=== PATIENT | female | born 1970 | race Caucasian/White ===

== ENCOUNTER 2023-08-28 17:51 | Emergency (ER) | payer BC ==
--- OUTSIDE RECORDS SUMMARY | 2023-08-28 17:56 | XMS REPORT | Continuity of Care Document ---
:1970 Author Organization [facility] [place] t Address [address] [place] [address] [address] [place] [address] Care Team Providers Name Role Phone Mandeep See Attending Clinician Unavailable LISA LEON Attending Clinician Unavailable Linette Connolly Attending Clinician Sussy Nagel Attending Clinician Tyler Mccullough MD Attending Clinician Mary Ellen Roque Attending Clinician SUSSY GOLDSTEIN Attending Clinician Unavailable Doctor Unassigned, [employer] Attending Clinician Unavailable Arthur Barnett Attending Clinician Freda Clark Attending Clinician Jose Hernandez Attending Clinician Physician, No Primary or Family Admitting Clinician Unavaila ble Payers Payer Name Policy Type Policy Number Effective Date Expiration Date S [facility] [id number] 2015 PP 00:00:00 [facility] [place] [facility] [id number] 2020 OF STATE 00:00:00 Problems Condition Condition Condition Status Onset Resolution Last Treating Co mments Source Name Details Category Date Date Treatment Clinician Date CHEST PAIN CHEST Diagnosis Active 2019-04-01 Memoria PAIN - 17:03:00 l Active 00:00: Baldev 10/20/2018 00 [facility] Z12.31 - Z12.31 - Diagnosis Active 2017-06-13 Memoria ENCNTR ENCNTR 04-02 15:50:00 l SCREEN SCREEN 00:01: [place] MAMMOGRAM MAMMOGRAM 00 FOR MA FOR MA Active 04/02/2017 [facility] HNP HNP Disease Active Univers (herniated (herniated - it y of nucleus nucleus 00:00: [place] pulposus), pulposus), 00 Me dical lumbar lumbar Branch Numbness Numbness Disease Active Unive rs 9-09 ity of 00:00: [place] 00 Medical Branch Pain in Pain in Problem 2019-05-09 Me moria thoracic thoracic 15:14:42 l spine spine Stanley 05/09/2019 [facility] Other Other Problem 2019-05-09 Memor ia chronic chronic 15:14:42 l pain pain Stanley 05/09/2019 [facility] Elevated Elevated Problem 2019-05-09 Memoria blood-pres blood-pres 15:14:42 l sure sure [place] reading, reading, without without diagnosis diagnosis of of hypertensi hypertensi on on 05/09/2019 [facility] Shortness Shortness Problem 2019-05-09 Memoria of breath of breath 15:14:42 l 05/09/2019 Isma jenkins [facility] Cough Cough Problem 2019-05-09 Memor ia 05/09/2019 15:14:42 l [facility] Insomnia, Insomnia, Problem 2019-05-09 Memoria unspecifie unspecifie 15:14:42 l d d [place] 05/09/2019 [facility] Personal Personal Problem 2019-05-09 Memoria history of history of 15:14:42 l other other [place] diseases diseases of the of the musculoske musculoske letal letal system and system and connective connective tissue tissue 05/09/2019 [facility] Mastodynia Mastodyni Problem 2018-01-27 Memoria a 15:11:26 l 01/27/[address] [facility] Victormckayla Women's History of Past Illness Condition Condition Condition Status Onset Resolution Last Treating Co mments Source Name Details Category Date Date Treatment Clinician Date Other Other Problem 2019-05-09 2019-05-09 M emoria chest pain chest pain 1-17 15:14:42 15:14:42 l 04:43: Isma jenkins 9 11 05/09/2019 [facility] Encounter Encounter Problem 2018-01-27 2018-01-27 Memoria for for 1-12 15:11:26 15:11:26 l screening screening 05:34: Herm jorge mammogram mammogram 52 for for malignant malignant neoplasm neoplasm of breast of breast 10/23/2017 01/27/2018 [facility] Jerad Women's Allergies, Adverse Reactions, Alerts Allergy Allergy Status Severity Reaction(s) Onset Inactive Treating Comm ents Source Name Type Date Date Clinician PHENAZOP DRUG Active Hives Univers YRIDINE INGREDI 8-24 ity of HCL 00:00: [place] 00 [facility] Branch Phenazop Propensi Active Hives Univer s yridine ty to 8-24 ity of Hcl adverse 00:00: [place] reaction [address] [place] [address] phenazop DA Active ME 2009-10 [facility] yridine 1-15 Clear HCl 00:00: Liu 00 [facility] phenazop DA Active ME HIVES, LIPS 2009-10 [facility] yridine SWELL 1-15 Clear HCl 00:00: Liu 00 [facility] AZO AZO Active Memoria Urinary Urinary l Pain Pain [place] Relief Relief Social History Social Habit Start Date Stop Date Quantity Comments Source Exposure to Not sure [place] of SARS-CoV-2 [facility] (event) Branch History of Cigarette Smoker Universi ty of tobacco use [facility] Tobacco use and 2019-08-04 2019-08-04 Never used Universit y of exposure 00:00:00 00:00:00 [facility] Alcohol intake 2019-08-04 2019-08-04 Current University of 00:00:00 00:00:00 non-drinker of [facility] alcohol (finding) Branch Tobacco Comment 2019-08-04 2019-08-04 smoked socially Univ ersity of 00:00:00 00:00:00 in her early 20s [facility] dical Branch Social History 2018-10-20 2018-10-20 [facility] natasha 18:59:46 18:59:46 Alcohol Comment 2013-06-17 2013-06-17 social; 2 Universit y of 00:00:00 00:00:00 times/month [facility] Sex [birth year] At [birth year] Universit y of 00:00:00 00:00:00 [facility] Smoking Status Start Date Stop Date Source Former smoker 2019-08-04 00:00:00 2019-08-04 00:00:00 [facility] Medical Branch Medications Ordered Filled Start Stop Current Ordering Indication Dosage Frequency Signature Comments Components Source Medication Medication Date Date Medication? Clinician (SIG) Name Name FENTanyl PF 2020- No 50ug 50 mcg, Un tariq (SUBLIMAZE 04-01 Slow IV ity o f (PF)) 03:30: 02:34 Push, [place] injection 00 :00 ONCE, 1 Medical 50 mcg dose, [facility] 03/31/21 at 2230, Routine iopamidol 2020- No [id number] 100mL 100 mL, Univers (ISOVUE 04-01 Intravenou ity o f 300-500 mL) 02:45: 01:27 s, ONCE, 1 [place] injection 00 :00 dose, [place] [facility] 100 mL 03/31/21 at Branch 2145, Routine FENTanyl PF No 50ug 50 mcg, Un tariq (SUBLIMAZE 04-01 Slow IV ity o f (PF)) 01:30: 00:58 Push, [place] injection 00 :00 ONCE, 1 Medical 50 mcg dose, [facility] 03/31/21 at 2030, Routine ondansetron 2020- No 4mg 4 mg, Slow Univers (ZOFRAN 03-31 IV Push, ity of (PF)) 23:15: 01:13 Administer [place] injection 4 00 :00 over 15 Medic al mg Minutes, Branch ONCE, 1 dose, [place] 03/31/21 at 1815, STAT NaCl 0.9% 2020- No 1000mL at 999 Uni vers (NS) bolus 03-31 mL/hr, ity of infusion 23:15: 00:46 1,000 mL, Jason as 1,000 mL 00 :00 IV Medical Infusion, [place] ONCE, 1 dose, [place] 03/31/21 at 1815, SHAAN ondansetron Yes [id number] 4mg Take 1 Univers (ZOFRAN) 4 03-31 [id number] tablet by it y of mg tablet 00:00: mouth [place] 00 every 8 Medical (eight) Branch hours as needed for Nausea and Vomiting (N/V) for up to 15 doses. acetaminoph Yes [id number] 1{tbl} Take 1 Un tariq en-codeine 6-20 tablet by ity of 300-30 mg 00:00: mouth [place] tablet 00 every 6 Medical (six) Branch hours as needed for Pain (scale 7-10) for up to 15 doses. Indication s: acute pain ESCITALOPRA Yes [id number] TAKE ONE Univers M OXALATE 3-12 TABLET BY ity o f 10 mg 00:00: MOUTH [place] tablet 00 DAILY Medical Branch ESCITALOPRA Yes [id number] TAKE ONE Univers M OXALATE 3-12 TABLET BY ity o f 10 mg 00:00: MOUTH [place] tablet 00 DAILY Medical Branch ESCITALOPRA Yes [id number] TAKE ONE Univers M OXALATE 3-12 TABLET BY ity o f 10 mg 00:00: MOUTH [place] tablet 00 DAILY Medical Branch traZODone Yes [id number] TAKE ONE Univers 100 mg 2-08 TABLET BY ity of tablet 00:00: MOUTH AT [place] 00 BEDTIME Medical FOR Branch INSOMNIA traZODone Yes [id number] TAKE ONE Univers 100 mg 2-08 TABLET BY ity of tablet 00:00: MOUTH AT [place] 00 BEDTIME Medical FOR Branch INSOMNIA traZODone Yes [id number] TAKE ONE Univers 100 mg 2-08 TABLET BY ity of tablet 00:00: MOUTH AT [place] 00 BEDTIME Medical FOR Branch INSOMNIA ESCITALOPRA Yes [id number] TAKE ONE Univers M OXALATE 2-02 TABLET BY ity o f 10 mg 00:00: MOUTH [place] tablet 00 DAILY Medical Branch ESCITALOPRA 0 2020- No [id number] TAKE ONE Univers M OXALATE 2-02 03-12 TABLET BY ity of 10 mg 00:00: 00:00 MOUTH [place] tablet 00 :00 DAILY Medical Branch TRAZODONE 2019-10 Yes [id number] TAKE ONE Univers 100 mg 2-12 TABLET BY ity of tablet 00:00: MOUTH [place] 00 EVERY Medical NIGHT AT Branch BEDTIME FOR INSOMNIA TRAZODONE 2019-10 Yes [id number] TAKE ONE Univers 100 mg 2-12 TABLET BY ity of tablet 00:00: MOUTH [place] 00 EVERY Medical NIGHT AT Branch BEDTIME FOR INSOMNIA TRAZODONE 2019- Yes [id number] TAKE ONE Univers 100 mg 2-12 TABLET BY ity of tablet 00:00: MOUTH [place] 00 EVERY Medical NIGHT AT Branch BEDTIME FOR INSOMNIA TRAZODONE 2020-0 Yes [id number] TAKE ONE Univers 100 mg 9-01 TABLET BY ity of tablet 00:00: MOUTH [place] 00 EVERY Medical NIGHT AT Branch BEDTIME FOR INSOMNIA TRAZODONE 2020-0 2020- No [id number] TAKE ONE Univers 100 mg 9-01 12-12 TABLET BY ity of tablet 00:00: 00:00 MOUTH [place] 00 :00 EVERY Medical NIGHT AT Branch BEDTIME FOR INSOMNIA TRAZODONE 2020-0 Yes [id number] TAKE ONE Univers 100 mg 6-29 TABLET BY ity of tablet 00:00: MOUTH [place] 00 EVERY Medical NIGHT AT Branch BEDTIME FOR INSOMNIA TRAZODONE 2020-0 2020- No [id number] TAKE ONE Univers 100 mg 6-29 09-01 TABLET BY ity of tablet 00:00: 00:00 MOUTH [place] 00 :00 EVERY Medical NIGHT AT Branch BEDTIME FOR INSOMNIA escitalopra 2020-0 Yes [id number] 10mg Take 1 Univers m oxalate 3-23 tablet by ity o f (LEXAPRO) 00:00: mouth [place] 10 mg 00 daily. Medical tablet Branch traZODone 2020-0 Yes [id number] TAKE ONE Univers 100 mg 3-23 TABLET BY ity of tablet 00:00: MOUTH [place] 00 EVERY Medical NIGHT AT Branch BEDTIME FOR INSOMNIA lisinopril 2020-0 Yes [id number] 20mg Take 1 U nivers 20 mg 3-23 tablet by ity of tablet 00:00: mouth [place] 00 daily. Medical Branch escitalopra 2020-0 Yes [id number] 10mg Take 1 Univers m oxalate 3-23 tablet by ity o f (LEXAPRO) 00:00: mouth [place] 10 mg 00 daily. Medical tablet Branch lisinopril 2020-0 Yes [id number] 20mg Take 1 U nivers 20 mg 3-23 tablet by ity of tablet 00:00: mouth [place] 00 daily. Medical Branch escitalopra 2020-0 Yes [id number] 10mg Take 1 Univers m oxalate 3-23 tablet by ity o f (LEXAPRO) 00:00: mouth [place] 10 mg 00 daily. Medical tablet Branch lisinopril 2020-0 Yes [id number] 20mg Take 1 U nivers 20 mg 3-23 tablet by ity of tablet 00:00: mouth [place] 00 daily. Medical Branch escitalopra 2020-0 Yes [id number] 10mg Take 1 Univers m oxalate 3-23 tablet by ity o f (LEXAPRO) 00:00: mouth [place] 10 mg 00 daily. Medical tablet Branch lisinopril 2019-0 Yes [id number] 20mg Take 1 U nivers 20 mg 3-23 tablet by ity of tablet 00:00: mouth [place] 00 daily. Medical Branch escitalopra 2019-0 Yes [id number] 10mg Take 1 Univers m oxalate 3-23 tablet by ity o f (LEXAPRO) 00:00: mouth [place] 10 mg 00 daily. Medical tablet Branch lisinopril 2019-0 Yes [id number] 20mg Take 1 U nivers 20 mg 3-23 tablet by ity of tablet 00:00: mouth [place] 00 daily. Medical Branch lisinopril 2019-0 Yes [id number] 20mg Take 1 U nivers 20 mg 3-23 tablet by ity of tablet 00:00: mouth [place] 00 daily. Medical Branch lisinopril 2019-0 Yes [id number] 20mg Take 1 U nivers 20 mg 3-23 tablet by ity of tablet 00:00: mouth [place] 00 daily. Medical Branch lisinopril 2019-0 Yes [id number] 20mg Take 1 U nivers 20 mg 3-23 tablet by ity of tablet 00:00: mouth [place] 00 daily. Medical Branch lisinopril 2019-0 Yes [id number] 20mg Take 1 U nivers 20 mg 3-23 tablet by ity of tablet 00:00: mouth [place] 00 daily. Medical Branch escitalopra 2019-0 Yes [id number] 10mg Take 1 Univers m oxalate 3-23 tablet by ity o f (LEXAPRO) 00:00: mouth [place] 10 mg 00 daily. Medical tablet Branch traZODone 2019-0 Yes [id number] TAKE ONE Univers 100 mg 3-23 TABLET BY ity of tablet 00:00: MOUTH [place] 00 EVERY Medical NIGHT AT Branch BEDTIME FOR INSOMNIA lisinopril 2019-0 Yes [id number] 20mg Take 1 U nivers 20 mg 3-23 tablet by ity of tablet 00:00: mouth [place] 00 daily. Medical Branch escitalopra 2020-0 2020- No [id number] 10mg Take 1 Univers m oxalate 3-23 - tablet by ity of (LEXAPRO) 00:00: 00:00 mouth [place] 10 mg 00 :00 daily. Medical tablet Branch traZODone 20200 2020- No [id number] TAKE ONE Univers 100 mg 3-23 06-29 TABLET BY ity of tablet 00:00: 00:00 MOUTH [place] 00 :00 EVERY Medical NIGHT AT Branch BEDTIME FOR INSOMNIA traZODone 2019- Yes [id number] TAKE ONE Univers 100 mg 2-27 TABLET BY ity of tablet 00:00: MOUTH [place] 00 EVERY Medical NIGHT AT Branch BEDTIME FOR INSOMNIA traZODone 2019- Yes [id number] TAKE ONE Univers 100 mg 2-27 TABLET BY ity of tablet 00:00: MOUTH [place] 00 EVERY Medical NIGHT AT [place] BEDTIME FOR INSOMNIA traZODone 2019- Yes [id number] TAKE ONE Univers 100 mg 2-27 TABLET BY ity of tablet 00:00: MOUTH [place] 00 EVERY Medical NIGHT AT [place] BEDTIME FOR INSOMNIA traZODone 2019- Yes [id number] TAKE ONE Univers 100 mg 2-27 TABLET BY ity of tablet 00:00: MOUTH [place] 00 EVERY Medical NIGHT AT [place] BEDTIME FOR INSOMNIA traZODone 2019- Yes [id number] TAKE ONE Univers 100 mg 2-27 TABLET BY ity of tablet 00:00: MOUTH [place] 00 EVERY Medical NIGHT AT [place] BEDTIME FOR INSOMNIA traZODone 2019- Yes [id number] TAKE ONE Univers 100 mg 2-27 TABLET BY ity of tablet 00:00: MOUTH [place] 00 EVERY Medical NIGHT AT [place] BEDTIME FOR INSOMNIA traZODone 2019- Yes [id number] TAKE ONE Univers 100 mg 2-27 TABLET BY ity of tablet 00:00: MOUTH [place] 00 EVERY Medical NIGHT AT [place] BEDTIME FOR INSOMNIA traZODone 2019- 2020- No [id number] TAKE ONE Univers 100 mg 2-27 03-23 TABLET BY ity of tablet 00:00: 00:00 MOUTH [place] 00 :00 EVERY Medical NIGHT AT Branch BEDTIME FOR INSOMNIA lisinopril 2019- Yes [id number] 20mg Take 1 U nivers 20 mg 2-23 tablet by ity of tablet 00:00: mouth [place] 00 daily. [facility] Branch lisinopril 2019- Yes [id number] 20mg Take 1 U nivers 20 mg 2-23 tablet by ity of tablet 00:00: mouth [place] 00 daily. [facility] lisinopril 2018-10 Yes [id number] 20mg Take 1 U nivers 20 mg 2-23 tablet by ity of tablet 00:00: mouth [place] 00 daily. Medical Branch lisinopril 2018-10 Yes [id number] 20mg Take 1 U nivers 20 mg 2-23 tablet by ity of tablet 00:00: mouth [place] 00 daily. Medical Branch lisinopril 2018-10 Yes [id number] 20mg Take 1 U nivers 20 mg 2-23 tablet by ity of tablet 00:00: mouth [place] 00 daily. Medical Branch lisinopril 2018-10 Yes [id number] 20mg Take 1 U nivers 20 mg 2-23 tablet by ity of tablet 00:00: mouth [place] 00 daily. Medical Branch lisinopril 2018-10 Yes [id number] 20mg Take 1 U nivers 20 mg 2-23 tablet by ity of tablet 00:00: mouth [place] 00 daily. Medical Branch lisinopril 2018-10 2020- No [id number] 20mg Take 1 Univers 20 mg 2-23 03-23 tablet by ity of tablet 00:00: 00:00 mouth [place] 00 :00 daily. Medical Branch azelastine 2018-10 Yes [id number] 1{spray Use 1 Univers 137 mcg 0-24 } [place] in ity of (0.1 %) 00:00: each [place] nasal spray 00 nostril 2 Med ical (two) Branch times daily. Use in each nostril as directed azelastine 2018-10 Yes [id number] 1{spray Use 1 Univers 137 mcg 0-24 } [place] in ity of (0.1 %) 00:00: each [place] nasal spray 00 nostril 2 Med ical (two) Branch times daily. Use in each nostril as directed azelastine 2018-10 Yes [id number] 1{spray Use 1 Univers 137 mcg 0-24 } [place] in ity of (0.1 %) 00:00: each [place] nasal spray 00 nostril 2 Med ical (two) Branch times daily. Use in each nostril as directed azelastine 2018-10 Yes [id number] 1{spray Use 1 Univers 137 mcg 0-24 } [place] in ity of (0.1 %) 00:00: each [place] nasal spray 00 nostril 2 Med ical (two) Branch times daily. Use in each nostril as directed azelastine 2018-10 Yes [id number] 1{spray Use 1 Univers 137 mcg 0-24 } [place] in ity of (0.1 %) 00:00: each [place] nasal spray 00 nostril 2 Med ical (two) Branch times daily. Use in each nostril as directed azelastine 2018-10 Yes [id number] 1{spray Use 1 Univers 137 mcg 0-24 } [place] in ity of (0.1 %) 00:00: each [place] nasal spray 00 nostril 2 Med ical (two) Branch times daily. Use in each nostril as directed azelastine 2018-10 Yes [id number] 1{spray Use 1 Univers 137 mcg 0-24 } [place] in ity of (0.1 %) 00:00: each [place] nasal spray 00 nostril 2 Med ical (two) Branch times daily. Use in each nostril as directed azelastine 2018-10 Yes [id number] 1{spray Use 1 Univers 137 mcg 0-24 } [place] in ity of (0.1 %) 00:00: each [place] nasal spray 00 nostril 2 Med ical (two) Branch times daily. Use in each nostril as directed azelastine 2018-10 Yes [id number] 1{spray Use 1 Univers 137 mcg 0-24 } [place] in ity of (0.1 %) 00:00: each [place] nasal spray 00 nostril 2 Med ical (two) Branch times daily. Use in each nostril as directed azelastine 2018-10 Yes [id number] 1{spray Use 1 Univers 137 mcg 0-24 } [place] in ity of (0.1 %) 00:00: each [place] nasal spray 00 nostril 2 Med ical (two) Branch times daily. Use in each nostril as directed azelastine 2018-10 Yes [id number] 1{spray Use 1 Univers 137 mcg 0-24 } [place] in ity of (0.1 %) 00:00: each [place] nasal spray 00 nostril 2 Med ical (two) Branch times daily. Use in each nostril as directed azelastine 2018-10 Yes [id number] 1{spray Use 1 Univers 137 mcg 0-24 } [place] in ity of (0.1 %) 00:00: each [place] nasal spray 00 nostril 2 Med ical (two) Branch times daily. Use in each nostril as directed azelastine 2018-10 Yes [id number] 1{spray Use 1 Univers 137 mcg 0-24 } [place] in ity of (0.1 %) 00:00: each [place] nasal spray 00 nostril 2 Med ical (two) Branch times daily. Use in each nostril as directed azelastine 2018-10 Yes [id number] 1{spray Use 1 Univers 137 mcg 0-24 } [place] in ity of (0.1 %) 00:00: each [place] nasal spray 00 nostril 2 Med ical (two) Branch times daily. Use in each nostril as directed azelastine 2018-10 Yes [id number] 1{spray Use 1 Univers 137 mcg 0-24 } [place] in ity of (0.1 %) 00:00: each [place] nasal spray 00 nostril 2 Med ical (two) Branch times daily. Use in each nostril as directed azelastine 2018-10 Yes [id number] 1{spray Use 1 Univers 137 mcg 0-24 } [place] in ity of (0.1 %) 00:00: each [place] nasal spray 00 nostril 2 Med ical (two) Branch times daily. Use in each nostril as directed azelastine 2018-10 Yes [id number] 1{spray Use 1 Univers 137 mcg 0-24 } [place] in ity of (0.1 %) 00:00: each [place] nasal spray 00 nostril 2 Med ical (two) Branch times daily. Use in each nostril as directed escitalopra Yes [id number] 10mg Take 1 Univers m oxalate 9-26 tablet by ity o f (LEXAPRO) 00:00: mouth [place] 10 mg 00 daily. Medical tablet Branch escitalopra Yes [id number] 10mg Take 1 Univers m oxalate 9-26 tablet by ity o f (LEXAPRO) 00:00: mouth [place] 10 mg 00 daily. Medical tablet Branch escitalopra Yes [id number] 10mg Take 1 Univers m oxalate 9-26 tablet by ity o f (LEXAPRO) 00:00: mouth [place] 10 mg 00 daily. Medical tablet Branch escitalopra 2019-0 Yes [id number] 10mg Take 1 Univers m oxalate 9-26 tablet by ity o f (LEXAPRO) 00:00: mouth [place] 10 mg 00 daily. Medical tablet Branch escitalopra 2019-0 Yes [id number] 10mg Take 1 Univers m oxalate 9-26 tablet by ity o f (LEXAPRO) 00:00: mouth [place] 10 mg 00 daily. Medical tablet Branch escitalopra 2018-0 Yes [id number] 10mg Take 1 Univers m oxalate 9-26 tablet by ity o f (LEXAPRO) 00:00: mouth [place] 10 mg 00 daily. Medical tablet Branch escitalopra Yes [id number] 10mg Take 1 Univers m oxalate 9-26 tablet by ity o f (LEXAPRO) 00:00: mouth [place] 10 mg 00 daily. Medical tablet Branch escitalopra 2018- 2020- No [id number] 10mg Take 1 Univers m oxalate 9-26 03-23 tablet by ity of (LEXAPRO) 00:00: 00:00 mouth [place] 10 mg 00 :00 daily. Medical tablet Branch Ketorolac 2019-0 No 15 mg, Memori a 1-09 Route: l 18:08: IVP, ONCE, [place] 00 Dosing Weight 65, kg, Priority: STAT, Start date: 10/20/18 12:08:00 WICK TENDER, Stop date: 10/20/18 12:08:00 WICK TENDER Sodium 2019-0 No 1,000 mL, Memori a Chloride - Infuse l 0.9% 18:08: Over: 1 [place] (Bolus) IV 00 hr, Route: IV, ONCE, Priority: STAT, Dosing Weight 65 kg, Start date: 10/20/18 12:08:00 WICK TENDER, Stop date: 10/20/18 12:08:00 WICK TENDER Saline 2019-0 No Notes: Memoria Flush 0.9% 1-09 (Same as: l 18:08: BD [place] 00 Posiflush) Immunizations Ordered Filled Immunization Date Status Comments [facility] e Immunization Name Name Stephy COVID-19 Stephy COVID-19 2021-06-10 Completed Vaccine Vaccine 00:00:00 Influenza Virus 2018-09-29 Completed Universit y of Vaccine Quad .5 mL 00:00:00 [facility] IM 6+ MO Branch Influenza Virus 2018-09-29 Completed Universit y of Vaccine Quad .5 mL 00:00:00 [place] Medical IM 6+ MO Branch Influenza Virus 2018-09-29 Completed Universit y of Vaccine Quad .5 mL 00:00:00 [place] Medical IM 6+ MO Branch Influenza Virus 2018-09-29 Completed Universit y of Vaccine Quad .5 mL 00:00:00 [place] Medical IM 6+ MO Branch Influenza Virus 2018-09-29 Completed Universit y of Vaccine Quad .5 mL 00:00:00 [place] Medical IM 6+ MO Branch Influenza Virus 2018-09-29 Completed Universit y of Vaccine Quad .5 mL 00:00:00 [place] Medical IM 6+ MO Branch Influenza Virus 2018-09-29 Completed Universit y of Vaccine Quad .5 mL 00:00:00 [place] Medical IM 6+ MO Branch Influenza Virus 2018-09-29 Completed Universit y of Vaccine Quad .5 mL 00:00:00 [place] Medical IM 6+ MO Branch Influenza Virus 2018-09-29 Completed Universit y of Vaccine Quad .5 mL 00:00:00 [place] Medical IM 6+ MO Branch Influenza Virus 2018-09-29 Completed Universit y of Vaccine Quad .5 mL 00:00:00 [place] Medical IM 6+ MO Branch Influenza Virus 2018-09-29 Completed Universit y of Vaccine Quad .5 mL 00:00:00 [place] Medical IM 6+ MO Branch Influenza Virus 2018-09-29 Completed Universit y of Vaccine Quad .5 mL 00:00:00 [place] Medical IM 6+ MO Branch Influenza Virus 2018-09-29 Completed Universit y of Vaccine Quad .5 mL 00:00:00 [place] Medical IM 6+ MO Branch Influenza Virus 2018-09-29 Completed Universit y of Vaccine Quad .5 mL 00:00:00 [place] Medical IM 6+ MO Branch Influenza Virus 2018-09-29 Completed Universit y of Vaccine Quad .5 mL 00:00:00 [place] Medical IM 6+ MO Branch Influenza Virus 2018-09-29 Completed Universit y of Vaccine Quad .5 mL 00:00:00 [place] Medical IM 6+ MO Branch Influenza Virus 2018-09-29 Completed Universit y of Vaccine Quad .5 mL 00:00:00 [place] Medical IM 6+ MO Branch Vital Signs Vital Name Observation Time Observation Value Comments Source Systolic blood 2021-04-01 03:27:00 136 mm[Hg] Univer sity of pressure [facility] Diastolic blood 2021-04-01 03:27:00 98 mm[Hg] Unive rsity of pressure [facility] Heart rate 2021-04-01 03:27:00 63 /min [facility] Respiratory rate 2021-04-01 03:27:00 18 /min [facility] Oxygen saturation in 2021-04-01 03:27:00 98 /min [facility] Arterial blood by [facility] Pulse oximetry [place] Body temperature 2021-04-01 03:23:35 36.61 [facility] height 2021-03-31 22:42:00 160 cm [facility] Body weight 2021-03-31 22:42:00 72.576 kg [facility] BMI 2021-03-31 22:42:00 28.34 kg/m2 [facility] Respitory Rate 2018-10-20 20:11:00 Memori al [place] Respitory Rate 2018-10-20 20:03:00 Memori al [facility] Systolic (mm Hg) 2018-10-20 19:30:00 Ward rial Baldev Diastolic (mm Hg) 2018-10-20 19:30:00 Mem orial [place] Temperature Oral (F) 2018-10-20 19:30:00 98.4 F [facility] [place] Respitory Rate 2018-10-20 19:30:00 Memori al [place] Systolic (mm Hg) 2018-10-20 19:00:00 Ward rial [place] Diastolic (mm Hg) 2018-10-20 19:00:00 Mem orial [facility]dev Weight 2018-10-20 17:55:00 [facility] BMI Calculated 2018-10-20 17:55:00 Memori al Baldev Height 2018-10-20 17:55:00 162.56 cm [facility] Temperature Oral (F) 2018-10-20 17:55:00 98.4 F [facility] Heart Rate 2018-10-20 17:55:00 [facility] [place] Systolic (mm Hg) 2018-10-20 17:55:00 Ward rial [facility] Diastolic (mm Hg) 2018-10-20 17:55:00 Mem orial [facility] Procedures Procedure Date / Time Performed Performing Clinician Cynthia fish CT ABDOMEN PELVIS W 2021-04-01 01:30:54 [facility] LIPASE 2021-03-31 23:28:00 [facility] [facility] COMP. METABOLIC PANEL 2021-03-31 23:28:00 [id number] CBC WITH DIFF 2021-03-31 23:28:00 [facility] URINALYSIS 2021-03-31 23:28:00 [facility] CONSENT/REFUSAL FOR 2021-03-31 22:23:07 Doctor Unassigned, No Un [facility] DIAGNOSIS AND Name Medical [facility] TREATMENT section [facility] Myomectomy [facility] Encounters Start End Encounter Admission Attending Care Care Encounter Source Date/Time Date/Time Type Type Clinicians Facility Department ID 2021-08-12 Emergency [facility] [id number] Univers 02:24:43 [facility] 2021-07-15 2021-07-17 [id number] [facility] 10:00:00 05:36:00 Mandeep 80 [facility] 2021-06-10 2021-06-10 Outpatient GCCOVIDV GCCOVIDV [id number] GCCOVID 00:00:00 00:00:00 V 2021-04-24 2021-04-24 Outpatient Bharath LEON [facility] [id number] Univers 14:00:00 14:00:00 LISA [facility] 2021-03-31 2021-03-31 [facility] [id number] Univers 17:43:00 22:36:00 Linette Bashir [facility] 350.1.13.10 [place] [facility] [id number] [address] ([facility]) 2021-02-25 2021-02-25 Refill Sussy Goldstein [facility] 1.2.840.114 [id number] Univers 00:00:00 00:00:00 [place] [facility] 350.1.13.10 [place] [id number] Med ical BRITANY [address] [place] [address] 2020-12-18 2020-12-18 Refill Tyler Mccullough [facility] 1.2.840.114 [id number] Univers 00:00:00 00:00:00 S HEALTH 350.1.13.10 [place] [id number] Med ical BRITANY [address] [place] [address] 2020-11-13 2020-11-13 Refill Jonah [facility] 1.2.840.114 [id number] Univers 00:00:00 00:00:00 Mary Ellen A HEALTH 350.1.13.10 i [place] [id number] Med ical BRITANY [address] [place] [address] 2020-11-13 2020-11-13 Refill Sussy Goldstein [facility] 1.2.840.114 [id number] Univers 00:00:00 00:00:00 [place] [facility] 350.1.13.10 [place] [id number] Med ical BRITANY [address] [place] [address] 2020-09-20 2020-09-20 Refill Sussy Goldstein [facility] 1.2.840.114 [id number] Univers 00:00:00 00:00:00 [place] [facility] 350.1.13.10 it [place] [id number] Med ical BRITANY [address] [place] [address] 2020-06-11 2020-06-11 RefSussy Fischer [facility] 1.2.840.114 [id number] Univers 00:00:00 00:00:00 [place] [facility] 350.1.13.10 [place] [id number] Med ical BRITANY [address] [place] [address] 2020-04-06 2020-04-06 RefSussy Fischer [facility] 1.2.840.114 [id number] Univers 00:00:00 00:00:00 [place] [facility] 350.1.13.10 [place] [id number] Med ical BRITANY [address] [place] [address] 2020-01-03 2020-01-03 Telephone Jonah [facility] [id number] Univers 00:00:00 00:00:00 Mary Ellen A SPECIALTY 350.1.13.10 ity of [place]2.7.2.[place] AT [id number] Nm taz OLMOS [address] [place] [address] 2020-01-02 2020-01-02 Outpatient R SUSSY GOLDSTEIN [facility] [id number] Univers 15:20:00 15:20:00 ity of [facility] 2020-01-02 2020-01-02 Telemedici Sussy Goldstein [facility] 1.2.840.114 [id number] Univers 14:54:14 15:14:14 ne Visit [place] [facility] 350.1.13.10 i [place] [id number] Med [address] 2020-01-02 2020-01-02 Telephone Sussy Goldstein [facility] 1.2.840.114 [id number] Univers 00:00:00 00:00:00 [place] [facility] 350.1.13.10 [place] [id number] [address] 2019-12-30 2019-12-30 Refill Sussy Goldstein [facility] 1.2.840.114 [id number] Univers 00:00:00 00:00:00 [place] [facility] 350.1.13.10 it [place].2.[place] [id number] Med [address] 2019-11-07 2019-11-07 Patient Doctor [facility] 1.2.840.114 [id number] Univers 00:00:00 00:00:00 Secure Msg Unassigned, HEALTH 350.1.13.10 ity of [employer] [place] 4[place]2.7.2.[place] [id number] [address] 2019-11-06 2019-11-06 Refill Sussy Goldstein [facility] 1.2.840.114 [id number] Univers 00:00:00 00:00:00 [place] [facility] 350.1.13.10 it y of FAMILY 4.2.7.2.686 [facility] [phone] Med ical BRITANY 044 [facility] 2018-10-20 2018-10-20 Emergency nullFlavo SE Ferr[place] [id number] Memoria 17:52:00 20:13:00 bharath [facility] 00 l (EDL) Baldev 2018-10-20 2018-10-20 Outpatient Anibal CONRADO [facility] [id number] 11:52:00 14:13:00 Arthur Mcdonald 00 2017-10-21 2017-10-[address] [facility] [id number] Memoria 21:02:00 05:59:00 Services r Outpatient 02 l Imaging [facility] 2017-10-21 2017-10-21 Outpatient Amber, 2.16.840. 2.16.840.1. 3 [id number] 15:02:00 23:59:00 Freda 1.618857. [id number] 02 Afia 3.615.108 5.108 2017-10-21 2017-10-21 Outpatient Amber, 2.16.840. 2.16.840.1. 3 [id number] 15:02:00 23:59:00 Freda 1.481898. [id number] 02 Afia 3.615.108 5.108 2016-05-08 2016-05-[address] [facility] [id number] Memoria 20:05:00 04:59:00 Services r Outpatient 00 l Imaging [facility] 2016-05-08 2016-05-08 Outpatient David, 2.16.840. 2.16.840.1. 3 [id number] 15:05:00 23:59:00 Jose Garg 1.206325. [id number] 3.615.108 5.108 Results Test Description Test Time Test Comments Results Result Comments Source SURGICAL PATH SPECIMENS 2021-07-19 15:55:00 Test Item Value Reference Range Interpretation Comme nts SURGICAL RUN PATH DATE: 07/19/21 [place] - LAB PAGE 1 RUN TIME: 1555 Specimen Inquiry RUN USER: INTERFACE SPECIMENS FRANCISCA (test code ENT: MARY VILLAREAL CCT #: [id number] [facility] [place]: [id number] AGE/SX: 51/F ROOM: = S) RE07/17/21REG DR: Mandeep See MD : 74 BED: DIS: STATUS: DEP [facility] TLOC: SPEC #: [id number] RECD: STATUS: GILLIAN REQ #: [id number] NILA: 07/17/21- SUBM DR: Mandeep See MD ENTERED: 1 -0 SP TYPE: SURG SPEC OTHR DR: Khushboo Primary or Family PhysicianORDERED: GM L3 2261 4, GM LEVEL 5 COMMENTS: 1.RIGHT TUBE 2.LEFT TUBE AND PARATUBAL CYST UTERUS CERVIX COPIES TO: No Primary or Family Physician Mandeep See MD [address] [place] [address] [address] [place] [address] 010-29 PROCEDURES: GM L3 53153 (07/18/211009) GM LEVEL 5 (07/18/21) FINAL DIAGN OSIS Uterus, cervix, bilateral fallopian tubes, hysterectomy with bilateral salpingectomy: Chr onic cervicitis; secretory endometrium with endometrial polyp; adenomyosis and leiomyomata; bilateral fallopian tubes with paratubal cysts. GROSS AND MICROSCOPIC GROSS EXAMINATIO N: Received in formalin labeled right fallopian tube is a 7 cm in length 1 cm in diameter fall opian tube with attached paratubal cyst measuring up to 0.6 cm (A). Received in formalin labeled uterus, cervix, left fallopian tube and paratubal cyst is a 248 g 11 x 7.5 x 5 cm uterus with a 3 cm in diameter cervix with pink-vicente ectocervix and 0.4 cm cervical os. The serosal shruthi face is purple-vicente with nodularity. The separate fallopian tube in the container measures 4.2 c m in length 1 cm in diameter with a 0.7 cm flaccid cystic structure. The endometrium contains a 1 .8 cm polyp. The endometrium measures up to 0.4 cm is pink-vicente and lush. The myometrium measure s up to 3.2 cm with white whorled nodules measuring up to 2 cm. Submitted (B) left fallopian tube (C)-(D) cervix (E)-(I) corpus uteri MICROSCOPIC EXAMINATION: Sections of the right fallop rubio tube reveal a fallopian tube with no significant histopathologic features. There is a small p aratubal cyst present. Sections of the left fallopian tube also show complete cross-section of fa llopian tube with small paratubal cyst. The cervix shows mild chronic inflammation. The en dometrium shows coiled glands with basally oriented nuclei. There are benign appearing endomet rial glands and stroma present in the myometrium. There are CONTINUED ON NEXT PAGE RUN DATE: 07/19/21 [place] - LAB PAGE 2 RUN TIME: 1555 Specimen Inquiry RUN USER: INTERFACE SPEC #: [id number] PATIENT: MARY VILLAREAL #[id number] (Continued) ------- GROSS AND PAMELLAI C (Continued) muscular lesions in the myometrium without significant nuclear atypia or mitotic activity. ----- Signed SIGNATURE ON FILE Laz Arevalo DO 06/01 7992 END OF REPORT RAPID PLASMA [id number] 10:30:00 Test Item Value Reference Range Interpretation Comments RAPID PLASMA REAGIN (test code = NONREACTIVE NONREACTIVE RPR) Novel Coronavirus 2019 [id number] 20:56:00 Test Item Value Reference Range Interpretation Comments Novel Coronavirus Negative Negative Positive r esults are 2019 Inhouse (test indicativ e of the presence code = COVNONPUI) ofSARS-CoV -2 RNA, clinical correlation wit h patient historyand othe r diagnostic info rmation is necessary to determinepatien t infection status. Positiv e results do not rule out bacterial infection or co -infection with other viru ses. Negative result s do not preclude SARS-C oV-2 infection andsh ould not be used as the shira e basis for patient managementdecis ions. Negative result s must be combined with otherclinical observations, p atient history, and epidemiological information . Detection of SARS-CoV-2 RNA may be affe cted bysample collec tion methods, storag e conditions, and /or stageof infection. Charley l RNA mutations, vacc inations, antiviraltherap eutics, antibiotics, chemotherapeuti c orimmunosuppres lkue drugs have not been e valuated for effectson d etection. Results are for the identification of SARS-CoV-2 RNA usingthe Brannon M2000 Sy stem under the FDA Emergen cy UseAuthorizatio n. The testing is perf ormed by personneltraine d in the procedures for the Brannon M2000 molecular diagnostic SARS-CoV-2 assa y in vitro. URINALYSIS [id number] 13:06:00 Test Item Value Reference Range Interpretation Comments UA COLOR (test code = COLU) YELLOW YEL/STRAW UA APPEARANCE (test code = APPU) SL CLOUDY CLEAR UA GLUCOSE DIPSTICK (test code = NEGATIVE NEGATIVE DGLUU) UA BILIRUBIN DIPSTICK (test code NEGATIVE NEGATIVE = BILU) UA KETONE DIPSTICK (test code = NEGATIVE NEGATIVE KETU) UA SPECIFIC GRAVITY (test code = 1.026 1.005-1.030 N SGU) UA BLOOD DIPSTICK (test code = NEGATIVE NEGATIVE ANDREINA) UA PH DIPSTICK (test code = DAVIDSON) 6.0 5.0-7.0 N UA PROTEIN DIPSTICK (test code = NEGATIVE NEGATIVE PROU) UA UROBILINIOGEN DIPSTICK (test 0.2 mg/dL 0.2-1.0 code = URO) UA NITRITE DIPSTICK (test code = NEGATIVE NEGATIVE JAMES) UA LEUKOCYTE ESTERASE DIPSTICK NEGATIVE NEGATIVE (test code = LEUU) UA RBC (test code = RBCU) 0-3 RBC/HPF 0-3 UA WBC NO REFLEX (test code = 0-3 WBC/HPF 0-3 WBCUCL) UA BACTERIA (test code = BACU) TRACE /HPF NONE SEEN UA SQUAMOUS CELLS (test code = 0-5 /HPF NONE SEEN SQU) UA MUCUS (test code = MUCU) 4+ /LPF NONE SEEN A [id number] 12:44:00 Test Item Value Reference Range Interpretation Comments CREATININE (test code = CREAT) 0.7 mg/dL 0.6-1.3 N HCG SERUM [id number] 12:44:00 Test Item Value Reference Range Interpretation Comments HCG SERUM QUAL (test code = SERUM NEGATIVE NEGATIVE HCGQL) PROTHROMBIN [id number] 12:42:00 Test Item Value Reference Range Interpretation Comments PROTHROMBIN TIME 11.2 SECONDS 9.3-12.9 N PATIENT (test code = PTP) INTERNATIONAL NORMAL 1.0 0.8-1.2 N TARGET INR BY RATIO (test code = INDICATIO N Indication INR) INR1. Prophylax is of venous thrombos is 2.0 - 3.0 (orthoped ic surgery), Proph ylaxis of venous throm bosis (other than hig h-risk surgery), Treat ment of Deep Vein Thrombosis/Pulm onary Embolism, Preve ntion of systemic emb olism - Tissue heart va lves, Acute Myocardia l Infarction (to prevent systemic emboli sm), Valvular heart disease, Atrial Fibrillation, Bileaflet mecha nical valve in aortic position.2. Mec hanical prosthetic valv es (high risk), 2. 5 - 3.5 Presence of Lup us Anticoagulant o r Antiphospholipi d Antibodies, Pre vention of systemic emb olism - Acute Myocardia l Infarction (to prevent recurrent infar ct). THROMBOPLASTIN TIME [id number] 12:42:00 Test Item Value Reference Range Interpretation Comments THROMBOPLASTIN TIME 27.4 Seconds 25.0-39.5 N Therape utic Range: PARTIAL (test code = 50.4 - 88.3 Seconds PTT) Effective 01/25/2019 CBC W/AUTO [id number] 12:29:00 Test Item Value Reference Range Interpretation Comments WHITE BLOOD CELL (test code = 7.0 x10 3/uL 4.5-11.0 N WBC) RED BLOOD CELL (test code = 4.44 x10 6/uL 3.54-5.02 N RBC) HEMOGLOBIN (test code = HGB) 12.0 g/dL 11.0-15.0 N HEMATOCRIT (test code = HCT) 39.8 % 33.0-45.0 N MEAN CELL VOLUME (test code = 89.6 fL 81.0-99.0 N MCV) MEAN CELL HGB (test code = MCH) 27.0 pg 27.0-33.0 N MEAN CELL HGB CONCETRATION 30.2 g/dL 33.0-37.0 L (test code = MCHC) RED CELL DISTRIBUTION WIDTH CV 14.3 % 11.5-14.5 N (test code = RDW) RED CELL DISTRIBUTION WIDTH SD 47.2 fL 37.0-54.0 N (test code = RDW-SD) PLATELET COUNT (test code = 301 x10 3/uL 150-400 N PLT) MEAN PLATELET VOLUME (test code 11.0 fL 7.0-9.0 H = MPV) NEUTROPHIL % (test code = NT%) 71.0 % 56.0-77.0 N IMMATURE GRANULOCYTE % (test 0.4 % 0.0-2.0 N code = IG%) LYMPHOCYTE % (test code = LY%) 16.7 % 14.0-32.0 N MONOCYTE % (test code = MO%) 10.1 % 4.8-9.0 H EOSINOPHIL % (test code = EO%) 1.4 % 0.3-3.7 N BASOPHIL % (test code = BA%) 0.4 % 0.0-2.0 N NUCLEATED RBC % (test code = 0.0 % 0-0 N NRBC%) NEUTROPHIL # (test code = NT#) 4.94 x10 3/uL 2.0-7.6 N IMMATURE GRANULOCYTE # (test 0.03 x10 3/uL 0.00-0.03 N code = IG#) LYMPHOCYTE # (test code = LY#) 1.16 x10 3/uL 1.0-3.8 N MONOCYTE # (test code = MO#) 0.70 x10 3/uL 0.1-0.8 N EOSINOPHIL # (test code = EO#) 0.10 x10 3/uL 0.0-0.2 N BASOPHIL # (test code = BA#) 0.03 x10 3/uL 0.0-0.2 N NUCLEATED RBC # (test code = 0.00 x10 3/uL 0.0-0.1 N NRBC#) MANUAL DIFF REQUIRED (test code NO = MDIFF) - XR CHEST 2 [id number] 00:00:00 [facility] 1970 Sex: F FAX: Mandeep Woo MD [phone] [place]: St: PRE [facility] 1970 Age/S: 51/F [address] [place] [address] Unit #: [id number] Loc: [place] [address] Phys: Sindi See MD Acct: [id number] Dis Date: Status: PRE SDC PHONE #: [phone] Exam Date: 07/15/2021 1148 FAX #: [phone] Reason: PREOP EXAMS: CPT CODE: [id number] XR CHEST 2 V 26345 PROCEDURE INFORMATION: Exam: XR Chest Exam date and time: 07/15/2021 11:32 AM Age: 51 years old Clinical indication: Screening exam; Pre-operative exam; Other: Preop TECHNIQUE: Imaging protocol: XR of the chest. Views: 2 views. PA and Lateral COMPARISON: No relevant prior studies available. FINDINGS: Lungs: There are normallung volumes without consolidation or interstitial oppacities. Pleural spaces: Unremarkable. No pleural effusion. No pneumothorax. Heart/Mediastinum: The heart size is normal. The pulmonary vasculature is normal. The mediastinal contour is normal. The trachea is midline. Bones/joints: No acute abnormality seen. IMPRESSION: No acute cardiopulmonary findings at 1222 Reported and signed by: Sage Godwin M.D. CC: Mandeep See MD Technologist: RT Connie(Bharath) Trnscrd Date/Time/By: 07/15/2021 (1222) : By: [email or web address] Orig Print D/T: S: 07/15/2021 (1222) PAGE 1 Signed ReportCT ABDOMEN PELVIS W [id number] 02:34:31 1. There is a small amount hemoperitoneum suggesting ruptured ovarian cyst.There is a cyst in the left ovary which appears partially decompressedmeasuring 2 cm.2. Otherwise no acute findings. RL: 6190AFC: 37174 End of report ORDERING CLINICIAN: LINETTE LEE TECHNIQUE: Multidetector helical scanning of the abdomen and pelvis wasperformedafter the administration of IV contrast. Coronal and sagittalreformations were obtained. CT scan wasperformed according to the ALARA (as low as reasonablyachievable) principal. INDICATION:Nausea and vomiting, abdominal distention COMPARISON:None DISCUSSION:There is hemoperitoneum. There is a degenerating cyst in the left ovarymeasuring 2 cm. Findings suggest ruptured hemorrhagic ovarian cyst. There a re multiple uterine fibroids. The bladder is unremarkable. There is no evidence of active colonic orsmall bowel inflammation orobstruction. The appendix is normal. The lung bases are clear. The liver,adrenal glands, gallbladder, spleen,pancreas, kidneys and stomach are unremarkable in their CT appearance. The abdominal and pelvic vasculature is normal. [facility], Radiant Results Inft User - 03/31/2021 9:35 PM CDT ORDERING CLINICIAN: LINETTE BRUCE: Multidetector helical scanning of the abdomen and pelvis wasperformed after the administration of IV contrast. Coronal and sagittalreformations were obtained.CT scan was performed according to the ALARA (as low as reasonablyachievable) principal.INDICATION:Nausea and vomiting, abdominal distentionCOMPARISON:NoneDISCUSSION:There is hemoperitoneum. There is a degenerating cyst in the left ovarymeasuring 2 cm. Findings suggest ruptured hemorrhagic ovarian cyst.There are multiple uterine fibroids.The bladder is unremarkable.There is no evidence of active colonic or small bowel inflammation orobstruction. The appendix is normal.The lung bases are clear. The liver, adrenal glands, gallbladder, spleen,pancreas, kidneys and stomach are unremarkable in their CT appearance.The abdominal and pelvic vasculature is normal.IMPRESSION1. There is a small amount hemoperitoneum suggesting ruptured o varian cyst.There is a cyst in the left ovary which appears partially decompressedmeasuring 2 cm.2. Otherwise no acute findings.RL: 6190AF: 79413 End of report [facility] 23:59:08 Test Item Value Reference Range Interpretation Comments APPEARANCE (test code = Clear Clear 3587754723) COLOR (test code = Yellow Yellow 0984441475) PH (test code = 4.8-8.0 6734185484) SP GRAVITY (test code = 1.003-1.030 5933683066) GLU U QUAL (test code = Normal Normal 9482579452) BLOOD (test code = Negative Negative 4277511659) KETONES (test code = 20 mg/dL Negative A 2110661089) PROTEIN (test code = Negative Negative 2887-8) UROBILIN (test code = Normal Normal 6162475575) BILIRUBIN (test code = Negative Negative 5709769122) NITRITE (test code = Negative Negative 8539940757) LEUK NABILA (test code = Negative Negative 3784283883) RBC/HPF (test code = See_Comment [Autom ated message] 9160202043) The system [employer] Tables generated this result transmitted ref erence range: 0 - 3 HP F. The reference range was not used to int erpret this result as normal/abnormal . WBC/HPF (test code = <1 See_Comment [Autom ated message] 9048374905) The system [employer] generated this result transmitted ref erence range: 0 - 5 HP F. The reference range was not used to int erpret this result as normal/abnormal . BACTERIA (test code = Negative Negative 4609002243) MUCOUS (test code = Slight Negative LPF A 1459704542) SQ EPITH (test code = See_Comment [Auto mated message] 0737978218) The system [employer] generated this result transmitted ref erence range: <=2 HPF. The reference range was not used to int erpret this result as normal/abnormal . Lab Interpretation (test Abnormal code = 69428-3) [facility]. METABOLIC PANEL (90756)2021-03-31 23:51:30 Test Item Value Reference Range Interpretation Comments NA (test code = 136 mmol/L 135-145 0076929314) K (test code = 4.3 mmol/L 3.5-5.0 4856364376) CL (test code = 104 mmol/L 98-108 7693934783) CO2 TOTAL (test code = 25 mmol/L 23-31 9207093400) AGAP (test code = 2-16 6921638952) BUN (test code = 15 mg/dL 7-23 6126207133) GLUCOSE (test code = 92 mg/dL 70-110 2536914294) CREATININE (test code = 0.58 mg/dL 0.50-1.04 5653558414) TOTAL BILI (test code = 0.3 mg/dL 0.1-1.8 5958991881) CALCIUM (test code = 8.5 mg/dL 8.6-10.6 L 6540911222) T PROTEIN (test code = 7.0 g/dL 6.3-8.2 0263380513) ALBUMIN (test code = 4.0 g/dL 3.5-5.0 1758816252) ALK PHOS (test code = 67 U/L 34-122 7966184886) ALTv (test code = 12 U/L 5-35 1742-6) AST(SGOT) (test code = 23 U/L 13-40 4641239895) eGFR (test code = mL/min/1.73m2 0275548729) HORACIO (test code = HORACIO) Association of Glomerular Filtration Rate (GFR) and Staging of Kidney Disease* + --+ --+ ------+| GFR (mL/min/1.73 m2) ?| With Kidney Damage ?| ?Without Kidney Damage+ --------+ --------+ +| ?>90 ?| ?Stage one ?| ? Normal ?+ ---+ ---+ -------+| ?60-89 ?| ?Stage two ?| ? Decreased GFR ? + --+ --+ ------+| ?30-59 ?| ?Stage three ?| ? Stage three ? + --+ --+ ------+| ?15-29 ?| ?Stage four ? | ? Stage four ?+ ---+ ---+ -------+| ?<15 (or dialysis) ? ?| ?Stage five ? | ? Stage five ?+ ---+ ---+ -------+ *Each stage assumes the associated GFR level has been in effect for at least three months. ?Stages 1 to 5, with or without kidney disease, indicate chronic kidney disease. Notes: Determination of stages one and two (with eGFR >59mL/min/1.73 m2) requires estimation of kidney damage for at least three months as defined by structural or functional abnormalities of the kidney, manifested by either:Pathological abnormalities or Markers of kidney damage (including abnormalities in the composition of the blood or urine or abnormalities in imaging tests). Lab Interpretation Abnormal (test code = 71575-6) [facility] Test Item Value Reference Range Interpretation Comments LIPASE (test code = 5556331864) 97 U/L 0-220 Lab Interpretation (test code = Normal 95192-8) [facility] [id number] 23:37:09 Test Item Value Reference Range Interpretation Comments WBC (test code = See_Comment [Automated message] 6690-2) The system [employer] generated this result transmitted ref erence range: 4.30 - 1 1.10 10*3/?L. The re ference range was not u sed to interpret this result as normal/abnor mal. RBC (test code = See_Comment [Automated message] 029-8) The system [employer] generated this result transmitted ref erence range: 3.93 - 5 .25 10*6/?L. The re ference range was not u sed to interpret this result as normal/abnor mal. HGB (test code = 11.9 g/dL 11.6-15.0 718-7) HCT (test code = 36.6 % 35.7-45.2 4544-3) MCV (test code = 87.1 fL 80.6-95.5 787-2) MCH (test code = 28.3 pg 25.9-32.8 785-6) MCHC (test code = 32.5 g/dL 31.6-35.1 786-4) RDW-SD (test code 46.5 fL 39.0-49.9 = 80003-6) RDW-CV (test code 14.5 % 12.0-15.5 = 788-0) PLT (test code = See_Comment [Automated message] 057-3) The system [employer] generated this result transmitted ref erence range: 166 - 35 8 10*3/?L. The re ference range was not u sed to interpret this result as normal/abnor mal. MPV (test code = 10.5 fL 9.5-12.9 35364-3) NRBC/100 WBC (test See_Comment [Automat ed message] code = 5460064542) The syste BECC which generated this result transmitted ref erence range: 0.0 - 10 .0 /100 WBCs. The refer ence range was not u sed to interpret this result as normal/abnor mal. NRBC x10^3 (test <0.01 See_Comment [Automated message] code = 2832494855) The syste m which generated this result transmitted ref erence range: 10*3/?L. The reference range was not used to interpr et this result as normal/abnormal . GRAN MAT (NEUT) % 70.9 % (test code = 770-8) IMM GRAN % (test 0.30 % code = 1587463365) LYMPH % (test code 17.0 % = 736-9) MONO % (test code 10.1 % = 5905-5) EOS % (test code = 1.5 % 713-8) BASO % (test code 0.2 % = 706-2) GRAN MAT 6.30 10*3/uL 1.88-7.09 x10^3(ANC) (test code = 3162613758) IMM GRAN x10^3 0.03 10*3/uL 0.00-0.06 (test code = 5285518139) LYMPH x10^3 (test 1.51 10*3/uL 1.32-3.29 code = 731-0) MONO x10^3 (test 0.90 10*3/uL 0.33-0.92 code = 742-7) EOS x10^3 (test 0.13 10*3/uL 0.03-0.39 code = 711-2) BASO x10^3 (test <0.03 0.01-0.07 code = 704-7) [facility] [id number] 18:12:00 Test Item Value Reference Range Interpretation Comments Total CK (test code = Total CK) 43 12-191 [facility]ART[facility] Family CreationsAC [id number] 18:12:00 Test Item Value Reference Range Interpretation Comments Troponin-I (test code = Troponin-I) no gt <=0.40 [facility] [id number] 18:12:00 Test Item Value Reference Range Interpretation Comments B/C Ratio (test code = B/C Ratio) 19 1 6-25 [facility] [id number] 18:12:00 Test Item Value Reference Range Interpretation Comments AGAP (test code = AGAP) 14.3 10.0-20.0 [facility] [id number] 18:12:00 Test Item Value Reference Range Interpretation Comments A/G Ratio (test code = A/G Ratio) 0.8 1 0.7-1.6 [facility] [id number] 18:12:00 Test Item Value Reference Range Interpretation Comments Globulin (test code = Globulin) 4.0 2.7-4.2 [facility]2019-01-09 18:12:00 Test Item Value Reference Range Interpretation Comments eGFR (test code = eGFR) 97 [facility]2019-01-09 18:12:00 Test Item Value Reference Range Interpretation Comments AST (test code = AST) 14 <=37 [facility]2019-01-09 18:12:00 Test Item Value Reference Range Interpretation Comments Alk Phos (test code = Alk Phos) 62 39-136 [facility]2019-01-09 18:12:00 Test Item Value Reference Range Interpretation Comments Bili Total (test code = Bili Total) 0.3 0.2-1.3 [facility]2019-01-09 18:12:00 Test Item Value Reference Range Interpretation Comments ALT (test code = ALT) 15 <=65 [facility]2019-01-09 18:12:00 Test Item Value Reference Range Interpretation Comments Total Protein (test code = Total 7.2 6.4-8.4 Protein) [facility]2019-01-09 18:12:00 Test Item Value Reference Range Interpretation Comments Calcium Lvl (test code = Calcium Lvl) 8.7 8.5-10.5 [facility]2019-01-09 18:12:00 Test Item Value Reference Range Interpretation Comments Albumin Lvl (test code = Albumin Lvl) 3.2 3.5-5.0 [facility]2019-01-09 18:12:00 Test Item Value Reference Range Interpretation Comments Potassium Lvl (test code = Potassium 4.3 3.5-5.1 Lvl) [facility]2019-01-09 18:12:00 Test Item Value Reference Range Interpretation Comments Creatinine Lvl (test code = Creatinine 0.74 0.50-1.40 Lvl) [facility]2019-01-09 18:12:00 Test Item Value Reference Range Interpretation Comments Glucose Lvl (test code = Glucose Lvl) 89 70-99 [facility]2019-01-09 18:12:00 Test Item Value Reference Range Interpretation Comments BUN (test code = BUN) 14 7-22 [facility]2019-01-09 18:12:00 Test Item Value Reference Range Interpretation Comments Chloride Lvl (test code = Chloride Lvl) 100 95-109 [facility]2019-01-09 18:12:00 Test Item Value Reference Range Interpretation Comments Sodium Lvl (test code = Sodium Lvl) 137 135-145 [facility]2019-01-09 18:12:00 Test Item Value Reference Range Interpretation Comments CO2 (test code = CO2) 27 24-32 [id number] 18:12:00 Test Item Value Reference Range Interpretation Comments S Preg (test code = S Negative (10/20/18 12:12 Preg) PM) [id number] 18:12:00 Test Item Value Reference Range Interpretation Comments Platelet (test code = Platelet) 247 133-450 [facility] [id number] 18:12:00 Test Item Value Reference Range Interpretation Comments MPV (test code = MPV) 9.0 7.4-10.4 [facility] [id number] 18:12:00 Test Item Value Reference Range Interpretation Comments MCHC (test code = MCHC) 32.7 32.0-36.0 [facility] [id number] 18:12:00 Test Item Value Reference Range Interpretation Comments RDW (test code = RDW) 16.2 11.5-14.5 [facility] [id number] 18:12:00 Test Item Value Reference Range Interpretation Comments MCH (test code = MCH) 26.9 pg 27.0-31.0 [facility] [id number] 18:12:00 Test Item Value Reference Range Interpretation Comments MCV (test code = MCV) 82.4 80.0-98.0 [facility] [id number] 18:12:00 Test Item Value Reference Range Interpretation Comments Hgb (test code = Hgb) 12.3 12.0-16.0 [facility] [id number] 18:12:00 Test Item Value Reference Range Interpretation Comments Hct (test code = Hct) 37.7 36.0-48.0 [facility] [id number] 18:12:00 Test Item Value Reference Range Interpretation Comments RBC (test code = RBC) 4.57 4.20-5.40 [facility] [id number] 18:12:00 Test Item Value Reference Range Interpretation Comments WBC (test code = WBC) 7.9 3.7-10.4 [facility] [id number] 18:12:00 Test Item Value Reference Range Interpretation Comments D-Dimer (test code = D-Dimer) 5.14 [facility] [id number] 18:12:00 Test Item Value Reference Range Interpretation Comments Eosinophils # (test code = Eosinophils 0.2 <=0.5 #) [facility] [id number] 18:12:00 Test Item Value Reference Range Interpretation Comments Lymphocytes # (test code = Lymphocytes 1.4 1.0-5.5 #) [facility] [id number] 18:12:00 Test Item Value Reference Range Interpretation Comments Neutrophils # (test code = Neutrophils 5.7 1.5-8.1 #) [facility] [id number] 18:12:00 Test Item Value Reference Range Interpretation Comments Basophils (test code = Basophils) 0.5 <=1.0 [facility] [id number] 18:12:00 Test Item Value Reference Range Interpretation Comments Monocytes # (test code = Monocytes #) 0.6 <=0.8 [facility] [id number] 18:12:00 Test Item Value Reference Range Interpretation Comments Eosinophils (test code = Eosinophils) 2.1 <=4.0 [facility] [id number] 18:12:00 Test Item Value Reference Range Interpretation Comments Monocytes (test code = Monocytes) 7.7 2.0-12.0 [facility] [id number] 18:12:00 Test Item Value Reference Range Interpretation Comments Lymphocytes (test code = Lymphocytes) 17.5 20.0-40.0 [facility] CampusNlorcijGDIALNAJLW2247-01-29 18:12:00 Test Item Value Reference Range Interpretation Comments Segs (test code = Segs) 72.2 45.0-75.0 [facility]"
[2023-08-28] MEDS ORDERED: MORPHINE 4 MG/ML SYR ONE ×2 (18:47→19:38)
[2023-08-28] MEDS ORDERED: ONDANSETRON 4 MG/2 ML VIAL ONE (18:47)
--- NOTE | 2023-08-28 19:08 | RAD REPORT ---
EXAM DESCRIPTION: RAD - Clavicle Left - 08/28/2023 7:01 pm CLINICAL HISTORY: PAIN COMPARISON: No comparisons FINDINGS: Multipart moderately displaced fracture of the midshaft of the left clavicle is seen. No d islocation evident.
--- NOTE | 2023-08-28 19:09 | RAD REPORT ---
EXAM DESCRIPTION: RAD - Humerus Left - 08/28/2023 7:01 pm CLINICAL HISTORY: fall;Pain COMPARISON: No comparisons FINDINGS: Moderately displaced multipart fracture of the mid left clavicle. No fracture or dislocati on of the left humerus.
--- NOTE | 2023-08-28 20:20 | RAD REPORT ---
EXAM DESCRIPTION: CT - Thorax Wo Con CLINICAL HISTORY: Chest pain fall COMPARISON: No comparisons FINDINGS: The lungs are clear. No pleural thickening or pleural effusion. No pneumothorax. No axillary, mediastinal or hilar adenopathy. Mildly comminuted left clavicle fracture. No gross upper abdominal finding. All CT scans are performed using dose optimization technique as appropriate and may include automated exposure control or mA/KV adjustment according to patient size. IMPRESSION: Mildly comminuted left clavicle fracture.
--- NOTE | 2023-08-28 20:54 | ER ---
Nurse's Notes [facility] Name: Monisha Malik Age: 53 yrs Sex: Female : 1970 Arrival Date: 08/28/2023 Time: 17:51 Bed 7 Private MD: Ad Santos Diagnosis: Displaced fracture of shaft of left clavicle Presentation: 08/28 18:09 Chief complaint: Patient states: Fell off kitchen counter while decorating, landed on nj1 left shoulder. Concerned she may have broken her collar bone. Coronavirus screen: Vaccine status: Patient reports receiving the 2nd dose of the covid vaccine. Ebola Screen: Patient denies travel to an Ebola-affected area in the 21 days before illness onset. Initial Sepsis Screen: Does the patient meet any 2 criteria? HR > 90 bpm. No. Patient's initial sepsis screen is negative. Does the patient have a suspected source of infection? No. Patient's initial sepsis screen is negative. Risk Assessment: Do you want to hurt yourself or someone else? Patient reports no desire to harm self or others. Onset of symptoms was August 27, 2023. 18:09 Method Of Arrival: Ambulatory [facility] 18:09 Acuity: LEE 3 nj1 Historical: - Allergies: 18:11 No Known Allergies; nj1 - PMHx: 18:11 None; nj1 - PSHx: 18:11 section; section; Myomectomy; Hysterectomy; nj1 - Immunization history:: Client reports receiving the 2nd dose of the Covid vaccine. - Social history:: Smoking status: Patient denies any tobacco usage or history of. Screenin:[facility] ED Fall Risk Assessment (Adult) History of falling in the last 3 months, kc6 including since admission Yes- single mechanical fall (1 pt) Confusion or Disorientation No (0 pts) Intoxicated or Sedated No (0 pts) Impaired Gait No (0 pts) Mobility Assist Device Used No (0 pt) Altered Elimination No (0 pt) Score/Fall Risk Level 0 - 2 = Low Risk. Abuse screen: Denies threats or abuse. Denies injuries from another. Nutritional screening: No deficits noted. Tuberculosis screening: No symptoms or risk factors identified. Assessment: 18:50 General: Appears in no apparent distress. comfortable, Behavior is calm, cooperative, kc6 appropriate for age. Pain: Complains of pain in left arm, LEFT SHOULDER. Neuro: Level of Consciousness is awake, alert, obeys commands, Oriented to person, place, time, situation, Appropriate for age. Cardiovascular: Capillary refill < 3 seconds. Respiratory: Airway is patent Trachea midline Respiratory effort is even, unlabored, Respiratory pattern is regular, symmetrical. GI: No signs and/or symptoms were reported involving the gastrointestinal system. : No signs and/or symptoms were reported regarding the genitourinary system. EENT: No signs and/or symptoms were reported regarding the EENT system. Derm: No signs and/or symptoms reported regarding the dermatologic system. Skin is intact, is healthy with good turgor, Skin is pink, warm \T\ dry. Musculoskeletal: Capillary refill < 3 seconds, Range of motion: limited in left shoulder. 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 nw1 21:03 General: left arm shoulder immobilizer applied, ice pack given. medicated for pain. Pt la4 reports arm position makes pain a lot better. . Vital Signs: 18:09 BP 114 / 79; Pulse 98; Resp 18; Temp 98.8(O); Pulse Ox 100% ; Weight 58.97 kg; Height 5 nj1 ft. 3 in. ; Pain 10/10; 19:14 BP 114 / 89; Pulse 98; Resp 16; Pulse Ox 93% on R/A; nw1 20:04 Pain 9/10; nw1 18:09 Body Mass Index 23.03 (58.97 kg, 160.02 cm) nj1 18:09 Pain Scale: Adult nj1 20:04 Pain Scale: Adult nw1 ED Course: 17:53 Patient arrived in ED. mr 17:53 Ad Santos MD is Private Physician. mr 18:03 Jovani Nur PA is PHCP. cp 18:03 Jovani Loving MD is Attending Physician. cp 18:11 Triage completed. nj1 18:11 Arm band placed on right wrist. nj1 18:49 Rody Weber, MIKAYLA is Primary Nurse. [facility] 18:49 Inserted saline lock: 20 gauge in right antecubital area, using aseptic technique. kc6 Patient maintains SpO2 saturation greater than 95% on room air. 18:50 Patient has correct armband on for positive identification. Bed in low position. Call kc6 light in reach. Side rails up X 1. Adult w/ patient. Client placed on continuous cardiac and pulse oximetry monitoring. NIBP monitoring applied. 19:00 Report given to MIKAYLA Guy \T\ MIKAYLA De Santiago. kc6 19:03 XRAY Humerus LEFT In Process Unspecified. EDMS 19:03 XRAY Clavicle LEFT In Process Unspecified. EDMS 20:11 CT Chest Wo Con In Process Unspecified. EDMS 20:53 Adrián Briscoe MD is Referral Physician. cp Administered Medications: 18:49 Drug: morphine IVP or IV 4 mg IVP once over 4 mins Route: IVP; Infused Over: 4 mins; kc6 Site: right antecubital; 18:49 Drug: Ondansetron IVP 4 mg IVP once; over 2 minutes Route: IVP; Site: right antecubital;kc6 19:35 Drug: morphine IVP or IV 4 mg IVP once over 4 mins Route: IVP; Infused Over: 4 mins; nw1 Site: right antecubital; 20:04 Follow up: Pain 9/10 Adult; Response: No adverse reaction; Pain is decreased; pt states nw1 pain is better than before receiving the medication 21:04 Follow up: Response: No adverse reaction; Pain is decreased la4 21:02 Drug: Ketorolac IVP 15 mg IVP once Route: IVP; Site: right forearm; la4 21:04 Follow up: Response: No adverse reaction la4 21:03 Drug: Hydrocodone-Acetaminophen PO (7.5 mg-325 mg) 1 tabs PO once; RASS on ADMIN: la4 Combtv4, Very Agttd3, Agttd2, Rstlss1, AlertClm0, Drwsy-1, Lt Sdtn-2, Mod Sdtn-3, Dp Sdtn-4, UnArsble-5 Route: PO; 21:04 Follow up: Response: No adverse reaction la4 Intake: Outcome: 20:54 Discharge ordered by . cp 21:45 Patient left the ED. la4 Signatures: Dispatcher [employer] EDMS ToSherry johansen, Reg Reg mr Liudmila, Jovani, PA PA Rody White RN RN kc6 Lizbet Zambrano RN RN nj1 Joe oCx RN RN la4 Anyi Duarte RN RN nw1 Corrections: (The following items were deleted from the chart) 18:12 18:09 Pulse 98bpm; Resp 18bpm; Pulse Ox 100%; Temp 98.8F Oral; 58.97 kg; Height 5 ft. 3 nj1 in.; BMI: 23.0; Pain 10, Adult; nj1
--- NOTE | 2023-08-28 20:54 | EDPHYS ---
Physician Documentation [facility] Name: Monisha Malik Age: 53 yrs Sex: Female : 1970 Arrival Date: 08/28/2023 Time: 17:51 Bed 7 Private MD: Ad Santos ED Physician Jovani Loving HPI: 08/28 18:30 This 53 yrs old Female presents to ER via Ambulatory with complaints of Fall Injury, cp Shoulder Injury. 18:30 Details of fall: The patient fell from a height, kitchen counter. cp 18:30 Onset: The symptoms/episode began/occurred just prior to arrival. Associated injuries: cp The patient sustained left shoulder and left upper arm. Historical: - Allergies: 18:11 No Known Allergies; nj1 - PMHx: 18:11 None; nj1 - PSHx: 18:11 section; section; Myomectomy; Hysterectomy; nj1 - Immunization history:: Client reports receiving the 2nd dose of the Covid vaccine. - Social history:: Smoking status: Patient denies any tobacco usage or history of. ROS: 18:45 MS/extremity: Positive for injury or acute deformity, decreased range of motion, of the cp left shoulder, Exam: 18:45 Constitutional: The patient appears in no acute distress, alert, awake, non-toxic, well cp developed, well nourished, uncomfortable, 18:45 Head/Face: Normocephalic, atraumatic. cp 18:45 Musculoskeletal/extremity: Extremities: noted in the left shoulder: decreased ROM, pain, ROM: limited passive range of motion due to pain, in the left shoulder, Vital Signs: 18:09 BP 114 / 79; Pulse 98; Resp 18; Temp 98.8(O); Pulse Ox 100% ; Weight 58.97 kg; Height 5 nj1 ft. 3 in. ; Pain 10/10; 19:14 BP 114 / 89; Pulse 98; Resp 16; Pulse Ox 93% on R/A; nw1 20:04 Pain 9/10; nw1 18:09 Body Mass Index 23.03 (58.97 kg, 160.02 cm) nj1 18:09 Pain Scale: Adult nj1 20:04 Pain Scale: Adult nw1 MDM: 18:13 Patient medically screened. cp 08/28 18:22 Order name: XRAY Humerus LEFT; Complete Time: 20:22 cp 08/28 18:22 Order name: XRAY Clavicle LEFT; Complete Time: 20:22 cp 08/28 19:18 Order name: CT Chest Wo Con; Complete Time: 20:22 cp 08/28 18:22 Order name: IV; Complete Time: 18:49 cp 08/28 20:23 Order name: Sling; Complete Time: 21:02 cp Administered Medications: 18:49 Drug: morphine IVP or IV 4 mg IVP once over 4 mins Route: IVP; Infused Over: 4 mins; kc6 Site: right antecubital; 18:49 Drug: Ondansetron IVP 4 mg IVP once; over 2 minutes Route: IVP; Site: right antecubital;kc6 19:35 Drug: morphine IVP or IV 4 mg IVP once over 4 mins Route: IVP; Infused Over: 4 mins; nw1 Site: right antecubital; 20:04 Follow up: Pain 9/10 Adult; Response: No adverse reaction; Pain is decreased; pt states nw1 pain is better than before receiving the medication 21:04 Follow up: Response: No adverse reaction; Pain is decreased la4 21:02 Drug: Ketorolac IVP 15 mg IVP once Route: IVP; Site: right forearm; la4 21:04 Follow up: Response: No adverse reaction la4 21:03 Drug: Hydrocodone-Acetaminophen PO (7.5 mg-325 mg) 1 tabs PO once; RASS on ADMIN: la4 Combtv4, Very Agttd3, Agttd2, Rstlss1, AlertClm0, Drwsy-1, Lt Sdtn-2, Mod Sdtn-3, Dp Sdtn-4, UnArsble-5 Route: PO; 21:04 Follow up: Response: No adverse reaction la4 Disposition Summary: 08/28/23 20:54 Discharge Ordered Notes: Location: Home cp Problem: new cp Symptoms: have improved cp Condition: Stable cp Diagnosis - Displaced fracture of shaft of left clavicle cp Followup: cp - With: Adrián Briscoe MD - When: 5 - 6 days - Reason: Recheck today's complaints Discharge Instructions: - Discharge Summary Sheet cp - Clavicle Fracture cp Forms: - Medication Reconciliation Form cp - Thank You Letter cp - Antibiotic Education cp - Prescription Opioid Use cp - Patient Portal Instructions cp - Leadership Thank You Letter cp Prescriptions: - acetaminophen-codeine 300-30 mg Oral tablet - take 2 tablet ORAL route every 8 hours; 20 tablet; Refills: 0, Product cp Selection Permitted - Ibuprofen 800 mg Oral Tablet - take 1 tablet ORAL route every 8 hours As needed take with food; 30 tablet; cp Refills: 0, Product Selection Permitted Signatures: Dispatcher [employer] EDJovani Mae PA PA cp Campbell, Kaitlyn RN RN kc6 Lizbet Zambrano RN RN nj1 Joe Cox RN RN la4 Anyi Duarte RN RN nw1
[2023-08-28] MEDS ORDERED: KETOROLAC 30 MG/ML INJ ONE (20:56)
[2023-08-28] MEDS ORDERED: HYDROCODONE/APAP 7.5/325 MG TAB ONE (21:04)
[2023-08-28 22:01] VITALS: TEMP 98.8
[2023-08-28 22:02] VITALS: BP 114/89; O2SAT 93
== END 2023-08-28 21:45 | disposition home or self-care (01) ==
LOC: ER 17:51
DX: S42.022A Displaced fracture of shaft of left clavicle, initial encounter for closed fracture (principal)
CPT/HCPCS: 71250; 73060; 73000; 99284; J2405

== ENCOUNTER 2023-09-01 09:09 | Day surgery (SDC) | payer BC ==
[2023-09-01 10:15] LABS: Absolute Lymphocytes (CBC) 1.1 K/uL (0.7-4.9); Hematocrit 40.3 % (36.0-45.0); Lymphocytes % 13.9 % (15.3-44.8); MCV 90.8 fL (80-100); Platelets 243 thou/uL (152-406); RBC Red Blood Cell Count 4.44 M/uL (3.86-4.86)
[2023-09-01] MEDS ORDERED: CEFAZOLIN SODIUM 1 GM/VIAL ONE (10:25)
[2023-09-01] MEDS ORDERED: Ringers Lactate 1,000 ML IV ONE ×2 (10:25→15:06)
[2023-09-01 10:34] LABS: Potassium 4.7 mEq/L (3.5-5.1)
[2023-09-01] MEDS ORDERED: LIDOCAINE 1% MPF 5 ML VIAL ONE (11:08)
[2023-09-01] MEDS ORDERED: dexAMETHasone 10 MG/ML VIAL ONE ×2 (11:08→15:56)
[2023-09-01] MEDS ORDERED: EPINEPHRINE/PF 1 MG/ML AMP ONE (11:09)
[2023-09-01] MEDS ORDERED: SODIUM BICARB 50 MEQ/50ML VIAL ONE (11:09)
[2023-09-01] MEDS ORDERED: MIDAZOLAM HCL 2 MG/2 ML INJ ONE (11:09)
[2023-09-01] MEDS ORDERED: FENTANYL CITR 100 MCG/2 ML ONE (11:09)
[2023-09-01] MEDS ORDERED: KETOROLAC 30 MG/ML INJ ONE (15:56)
[2023-09-01] MEDS ORDERED: Mastisol Adhesive Liq ONE (15:56)
[2023-09-01] MEDS ORDERED: ONDANSETRON 4 MG/2 ML VIAL ONE (15:56)
--- NOTE | 2023-09-01 16:18 | OP ---
Date of Procedure: 09/01/2023 Surgeon: Aden Cavazos MD Preoperative Diagnosis: Comminuted widely displaced left midshaft clavicle fracture. Postoperative Diagnosis: Comminuted widely displaced left midshaft clavicle fracture. Procedures: Open reduction and internal fixation of comminuted widely displaced midshaft clavicle fr acture using the Acumed clavicle plating system. Estimated Blood Loss: 20 cc. Complications: There were no complications. Indications For Operation: Ms. Malik is a 53-year-old female who unfortunately fell off the [address] ter, injuring her left upper extremity. She had immediate pain related to her shoulder and x-rays we re taken in the emergency department, which revealed a highly displaced multipart midshaft clavicle f racture. She came to my office and risks, benefits, and alternatives of different methods of treatin g this had been discussed with the patient. She states she understands things as presented and opts for open reduction and internal fixation, which I think is definitely appropriate. Risks of this par ticular procedure again discussed as well as method. She says she understands things as presented an d wishes to proceed. Description Of Procedure: Patient was seen in the holding area and was given a shoulder block by [facility] staff. Following this, she was then brought back to the operating room where she was placed in the beachchair position with her position being checked carefully by Anesthesia exposing her left clavicle. It was then prepped and draped in usual sterile fashion. C-arm was brought in to ensure v osorio good C-arm views before proceeding and we could see the clavicle in its entirety. An incision wa s made along the more proximal aspect of the clavicle, which was taken down carefully through skin an d soft tissues. Meticulous hemostasis being obtained using Bovie electrocautery. This led down to t he end of the more proximal fragment. A very large butterfly fragment was easily seen. However, the remainder of the clavicle was much deeper and it was very carefully dissected out to allow for mobil ization both laterally and superiorly. This gave better visualization of the butterfly fragment, whi ch does not appear to be able to be lagged in position because of its morphology and the decision was made to apply the plate proximally and clamped the plate to the distal fragment, which was done with out difficulty and the screws were then placed using C-arm to ensure proper length. Care being taken not to overdrill. After this occurs, the remainder of the plate was applied using screws and this a llowed for stabilization and the ability to move the butterfly fragment, which was kept vascularized as much as possible into the johnson of the fracture. This was held in place using a FiberWire which goe s around the clavicle very carefully hugging the bone and also through the plate. It was tied secure ly and appeared to hold this butterfly fragment in good position. At the end of the case, the screws were tested and it appears that the screw which was second most proximal does not have a very good b ite and also appears to be slightly long. Decision was made to remove this and place a cancellous sc rew which was slightly shorter, which had a much better bite. It should also be noted that the third screw from the most proximal aspect of the plate is a lock screw as it was only able to have unicort ical purchase. It was again observed under radiography and appears to be in good alignment and the s crews appeared to be appropriate length. After this, the wound was irrigated and the platysma and so ft tissues were closed over the plate using a running 2-0 Vicryl suture. This was followed by closur e of skin with 2-0 Vicryl suture followed by subcuticular 4-0 Monocryl suture and Steri-Strips with d ressing of an Aquacel dressing. The patient was placed in a shoulder immobilizer, awakened, and take n to recovery room in good condition. There were no complications. SE/MODL Voice ID: [id number] Report ID: [id number]
[2023-09-01] MEDS: HYDROMORPHONE HCL 1 MG/ML INJ ONE ×2 (16:33→16:38)
[2023-09-01] MEDS: FENTANYL CITR 100 MCG/2 ML ONE ×2 (16:43→16:47)
--- NOTE | 2023-09-01 16:49 | RAD REPORT ---
EXAM DESCRIPTION: RAD - Fluoroscopy <1 Hour - 09/01/2023 4:43 pm CLINICAL HISTORY: ORIF CLAVICLE COMPARISON: Fluoroscopy <1 Hour dated 09/01/2023; Fluoroscopy <1 Hour dated 09/01/2023; Thorax Wo Co n dated 08/28/2023 FINDINGS/IMPRESSION: Thirty-four intraoperative fluoroscopic images submitted showing fixation of a left clavicle fracture. Fluoro time: 0.6 minutes Cumulative dose: 2.7 mGy
--- NOTE | 2023-09-01 16:50 | RAD REPORT ---
EXAM DESCRIPTION: RAD - Fluoroscopy <1 Hour - 09/01/2023 4:43 pm CLINICAL HISTORY: ORIF CLAVICLE COMPARISON: Fluoroscopy <1 Hour dated 09/01/2023 FINDINGS/IMPRESSION: Thirty-four intraoperative fluoroscopic images submitted showing fixation of a left clavicle fracture. Fluoro time: 0.6 minutes Cumulative dose: 2.7 mGy
[2023-09-01] MEDS ORDERED: HYDROCODONE/APAP 7.5/325 MG TAB ONE (17:27)
[2023-09-01 18:38] VITALS: BP 112/78; TEMP 97; O2SAT 99
--- NOTE | 2023-09-02 16:52 | EKG ---
Test Date: 2023-09-01 Test Time: 11:03:48 Greenhouse Manager: RUPERT MEASUREMENT RESULTS: Intervals: Rate: 60 CA: 146 QRSD: 82 QT: 406 QTc: 406 [place]: P: 61 CA: 146 QRS: 80 T: 56 INTERPRETIVE STATEMENTS: Normal sinus rhythm Normal ECG No previous ECG available for comparison Electronically Signed On 09-02-23 16:49:54 MACHINE SHOP WORKER by Rajendra Costa
--- NOTE | 2023-09-02 16:52 | EKG ---
Test Date: 2023-09-01 Test Time: 11:01:53 Pillowcase Maker: RUPERT MEASUREMENT RESULTS: Intervals: Rate: 62 MN: 142 QRSD: 82 QT: 402 QTc: 408 [place]: P: 38 MN: 142 QRS: 82 T: 60 INTERPRETIVE STATEMENTS: Normal sinus rhythm Normal ECG No previous ECG available for comparison Electronically Signed On 09-02-23 16:49:57 LIABILITY CLAIMS ADJUSTER by Rajendra Costa
== END 2023-09-01 18:24 | disposition home or self-care (01) ==
LOC: OR 09:09
PROVIDERS: ATTEND Orthopaedic Surgery
PROC: 0PSB04Z Reposition Left Clavicle with Internal Fixation Device, Open Approach (ICD-10-PCS; principal; 2023-09-01 12:45)
DX: S42.022A Displaced fracture of shaft of left clavicle, initial encounter for closed fracture (principal); I10 Essential (primary) hypertension; K21.9 Gastro-esophageal reflux disease without esophagitis; Z79.899 Other long term (current) drug therapy; Z83.3 Family history of diabetes mellitus; Z80.9 Family history of malignant neoplasm, unspecified
CPT/HCPCS: 93005 ×2; 85025; 80048; 36415; 76000 ×3; 23515; J0171; J2001; J2250; J3010 ×2; J1100 ×2; J1170; J2405; J7120 ×2; J0690; C1713

== ENCOUNTER → 2023-10-19 | Emergency (ER) | payer BC ==
[~2023-10-19] MED LIST: CEFAZOLIN SODIUM 1 GM/VIAL ONE; LORazepam 2 MG/ML VIAL ONE; NA CHLORIDE 0.9% 1,000 ML ONE; NA CHLORIDE 0.9% 100 ML ONE
--- NOTE | 2023-10-19 09:49 | RAD REPORT ---
EXAM DESCRIPTION: CT - Head Brain Wo Cont - 10/19/2023 9:34 am CLINICAL HISTORY: recurrent falls Fall, head trauma COMPARISON: No comparisons TECHNIQUE: All CT scans are performed using dose optimization technique as appropriate and may inclu de automated exposure control or mA/KV adjustment according to patient size. FINDINGS: No intracranial hemorrhage, hydrocephalus or extra-axial fluid collection.No areas of brai n edema or evidence of midline shift. The paranasal sinuses and mastoids are clear. The calvarium is intact. IMPRESSION: No acute intracranial abnormality.
--- NOTE | 2023-10-19 10:04 | RAD REPORT ---
EXAM DESCRIPTION: RAD - Chest Single View - 10/19/2023 9:44 am CLINICAL HISTORY: syncope Chest pain. COMPARISON: No comparisons FINDINGS: Portable technique limits examination quality. The lungs are grossly clear. The heart is normal in size. No displaced fractures.Left clavicular hard fleming noted. IMPRESSION: No acute intrathoracic process suspected.
[2023-10-19 10:09] LABS: Absolute Lymphocytes (CBC) 0.9 K/uL (0.7-4.9); Hematocrit 42.3 % (36.0-45.0); Lymphocytes % 10.6 % (15.3-44.8); MCV 90.6 fL (80-100); MPV 8.9 fL (7.6-11.3); Platelets 275 thou/uL (152-406); RBC Red Blood Cell Count 4.67 M/uL (3.86-4.86)
[2023-10-19 10:18] LABS: Protime INR 1.1
[2023-10-19 10:25] LABS: Albumin 3.5 g/dL (3.4-5.0); Bilirubin Direct 0.1 mg/dL (0-0.2); Bilirubin Indirect, Calculated 0.2 mg/dL (0.2-0.8); Bilirubin Total 0.3 mg/dL (0.2-1.0); Magnesium 2.1 mg/dL (1.6-2.4); Potassium 4.2 mEq/L (3.5-5.1); Protein, Total 7.2 g/dL (6.4-8.2); Troponin High Sensitivity 4.6 pg/mL (<58.9)
--- NOTE | 2023-10-19 12:19 | EKG ---
Test Date: 2023-10-19 Test Time: 09:44:41 Implementation Architect: ROCHELLE MEASUREMENT RESULTS: Intervals: Rate: 85 MI: 138 QRSD: 80 QT: 358 QTc: 426 Superior: P: 81 MI: 138 QRS: 86 T: 76 INTERPRETIVE STATEMENTS: Normal sinus rhythm Normal ECG Compared to ECG 09/01/2023 11:03:48 No significant changes Electronically Signed On 10-19-23 12:18:19 MAIL INSERTER by Rajendra Costa
--- NOTE | 2023-10-19 12:52 | EDPHYS ---
Physician Documentation [facility] Name: Monisha Malik Age: 53 yrs Sex: Female : 1970 Arrival Date: 10/19/2023 Time: 09:06 Bed 17 Private MD: dA Santos ED Physician Reyes Sal HPI: 10/19 09:30 This 53 yrs old Female presents to ER via Ambulatory with complaints of Laceration To sb4 Lip. 09:30 The patient has a laceration occurred at home, and there are no complicating factors. sb4 The injury was accidental. The laceration(s) is(are) located on the upper faiza border and upper lip. Onset: The symptoms/episode began/occurred just prior to arrival. Associated signs and symptoms: Pertinent positives: dizziness. patient states she got up this morning to get ready, saw stars, then fell and sustained a laceration to her upper lip. she states that she has experienced similar episodes 3 other times over the past 2 weeks. she denies any dizziness or blurry vision, just states that she "sees stars." denies any recent changes in medications, she is on lisinopril for HTN. no chest pain, sob. Historical: - Allergies: 09:25 No Known Allergies; iw - PSHx: 09:25 section; hysterectomy; Myomectomy; iw ROS: 09:30 Constitutional: Negative for fever, chills, and weight loss, sb4 09:30 Skin: Positive for laceration(s), 09:30 Neuro: Positive for syncope, 09:30 All other systems are negative, Exam: 09:30 Constitutional: This is a well developed, well nourished patient who is awake, alert, sb4 and in no acute distress. Eyes: Extra-ocular motions intact. Periorbital areas with no swelling, redness, or edema. ENT: Mucous membranes moist. Cardiovascular: Regular rate and rhythm with a normal S1 and S2. Respiratory: Lungs have equal breath sounds bilaterally, clear to auscultation and percussion. No rales, rhonchi or wheezes noted. No increased work of breathing, no retractions or nasal flaring. Abdomen/GI: Soft, non-tender, no distension. MS/ Extremity: Pulses equal, no cyanosis. Neurovascular intact. Full, normal range of motion. Neuro: Awake and alert, GCS 15, oriented to person, place, time, and situation. Motor strength 5/5 in all extremities. Sensory grossly intact. 09:30 Skin: injury, laceration(s), the wound is approximately 5 cm(s), with a depth of 2 cm(s), of the upper lip and upper faiza border, that can be described as no foreign body, through and through, with mild bleeding, Vital Signs: 09:26 BP 109 / 76; Pulse 88; Resp 16; Temp 97.8; Pulse Ox 99% on R/A; iw 10:21 BP 100 / 71 LA Supine (auto/reg); Pulse 87; iw 10:21 BP 102 / 69 LA Sitting (auto/reg); Pulse 89; iw 10:21 BP 107 / 76 LA Standing (auto/reg); Pulse 99; iw 13:20 BP 102 / 61; Pulse 68; Resp 17 S; Pulse Ox 100% on R/A; kc6 MDM: 09:17 Patient medically screened. sb4 09:30 Differential diagnosis: superficial laceration, tendon injury, vascular injury. sb4 09:53 ED course: contacted plastics, Dr. Liu, and ENT, Dr. Zavala regarding repair of sb4 laceration . 12:15 ED course: dr Zavala at bedside suturing. sb4 12:49 Data reviewed: vital signs, nurses notes, lab test result(s), EKG, radiologic studies, sb4 I have discussed the patient's presentation/case with the attending Emergency Department Physician; and as a result, I will discharge patient. 12:50 Management of patient was discussed with the following: Collections And Archives Director: ENT, Dr. Zavala, sb4 repaired laceration, will see patient in clinic in 1 week. Care significantly affected by the following chronic conditions: Hypertension. Counseling: I had a detailed discussion with the patient and/or guardian regarding the historical points, exam findings, and any diagnostic results supporting the discharge/admit diagnosis, lab results, radiology results, the need for outpatient follow up, an ENT specialist, to return to the emergency department if symptoms worsen or persist or if there are any questions or concerns that arise at home. 10/19 09:27 Order name: Basic Metabolic Panel; Complete Time: 10:26 sb4 10/19 09:27 Order name: CBC with Diff; Complete Time: 10:15 sb4 10/19 09:27 Order name: Hepatic Function; Complete Time: 10:26 sb4 10/19 09:27 Order name: Magnesium; Complete Time: 10:26 sb4 10/19 09:27 Order name: Protime (+inr); Complete Time: 10:20 sb4 10/19 09:27 Order name: Ptt, Activated; Complete Time: 10:20 sb4 10/19 09:27 Order name: Troponin High Sensitivity; Complete Time: 10:26 sb4 10/19 09:27 Order name: CT Head Brain wo Cont; Complete Time: 09:51 sb4 10/19 09:27 Order name: Chest Single View XRAY; Complete Time: 10:06 sb4 10/19 09:27 Order name: EKG; Complete Time: 09:27 sb4 10/19 09:27 Order name: Cardiac monitoring; Complete Time: 09:58 sb4 10/19 09:27 Order name: EKG - Nurse/Tech; Complete Time: 09:58 sb4 10/19 09:27 Order name: IV Saline Lock; Complete Time: 09:58 sb4 10/19 09:27 Order name: Labs collected and sent; Complete Time: 09:58 sb4 10/19 09:27 Order name: O2 Per Protocol; Complete Time: 09:27 sb4 10/19 09:27 Order name: O2 Sat Monitoring; Complete Time: 09:27 sb4 10/19 09:27 Order name: Orthostatics; Complete Time: 09:58 sb4 EC:59 Rate is 85 beats/min. Rhythm is regular, Normal Sinus Rhythm. QRS [place] is Normal. MT sb4 interval is normal at 138 msec. QRS interval is normal at 80 msec. QT interval is normal at 358 msec. No Q waves. T waves are Normal. No ST changes noted. Clinical impression: Normal ECG. Interpreted by me. Reviewed by me. Administered Medications: 10:20 Drug: NS 0.9% IV 1000 ml IV at 1 bolus Per protocol; 1000 mL bolus Route: IV; Rate: 1 iw bolus; Site: right antecubital; 13:21 Follow up: Response: No adverse reaction; IV Status: Completed infusion; IV Intake: kc6 1000ml 12:26 Drug: Ativan IVP 0.5 mg IVP once Route: IVP; Site: right antecubital; iw 13:21 Follow up: Response: No adverse reaction; Anxiety decreased; RASS: Alert and Calm (0) kc6 13:03 Drug: ceFAZolin IVPB 1 grams IVPB once Route: IVPB; Site: right antecubital; kc6 Disposition: 18:39 I was immediately available on-site in the Emergency Department for consultation in the ms3 care of the patient. Disposition Summary: 10/19/23 12:51 Discharge Ordered Notes: Location: Home sb4 Problem: new sb4 Symptoms: have improved sb4 Condition: Stable sb4 Diagnosis - Laceration without foreign body of lip sb4 - Syncope Near sb4 Followup: sb4 - With: Sherice Godwin MD - When: As needed - Reason: Recheck today's complaints, Re-evaluation by your physician Followup: sb4 - With: Sherice Godwin MD - When: 1 week - Reason: Recheck today's complaints, Staple/Suture removal, Re-evaluation by your physician Discharge Instructions: - Discharge Summary Sheet sb4 - Mouth Laceration, [id number] sb4 - Hypotension, [id number] sb4 Forms: - Medication Reconciliation Form sb4 - Thank You Letter sb4 - Antibiotic Education sb4 - Prescription Opioid Use sb4 - Patient Portal Instructions sb4 - Leadership Thank You Letter sb4 Signatures: Dispatcher [employer] Laura Fernando, MIKAYLA DEGROOT iw Reyes Sal DO DO ms3 Rody Weber RN RN kc6 Arti Salgado PA-C PAPattie sb4
--- NOTE | 2023-10-19 12:52 | ER ---
Nurse's Notes [facility] Name: Monisha Malik Age: 53 yrs Sex: Female : 1970 Arrival Date: 10/19/2023 Time: 09:06 Bed 17 Private MD: Ad Santos Diagnosis: Laceration without foreign body of lip;Syncope Near Presentation: 10/19 09:23 Chief complaint: Patient states: woke up this morning, went to bathroom, was "seeing iw stars", fell to floor, hit her face on floor, large through and through laceration to upper lip. Coronavirus screen: At this time, the client does not indicate any symptoms associated with coronavirus-19. : Acuity: LEE 3 iw Method Of Arrival: Ambulatory iw : Ebola Screen: Patient negative for fever greater than or equal to 101.5 degrees iw Fahrenheit, and additional compatible Ebola Virus Disease symptoms Patient denies exposure to infectious person. Patient denies travel to an Ebola-affected area in the 21 days before illness onset. No symptoms or risks identified at this time. Complicating Factors: There are no complicating factors for this patient. Initial Sepsis Screen: Does the patient meet any 2 criteria? No. Patient's initial sepsis screen is negative. Does the patient have a suspected source of infection? No. Patient's initial sepsis screen is negative. Risk Assessment: Do you want to hurt yourself or someone else? Patient reports no desire to harm self or others. Onset of symptoms was October 19, 2023. Historical: - Allergies: : No Known Allergies; iw - PSHx: : section; hysterectomy; Myomectomy; iw Screenin: [facility] ED Fall Risk Assessment (Adult) History of falling in the last 3 months, iw including since admission Yes- physiologic fall (2 pts) Confusion or Disorientation No (0 pts) Intoxicated or Sedated No (0 pts) Impaired Gait No (0 pts) Mobility Assist Device Used No (0 pt) Altered Elimination No (0 pt) Score/Fall Risk Level 0 - 2 = Low Risk. Abuse screen: Denies threats or abuse. Denies injuries from another. Nutritional screening: No deficits noted. Tuberculosis screening: No symptoms or risk factors identified. Assessment: :30 General: Appears in no apparent distress. comfortable, well groomed, well developed, iw Behavior is calm, cooperative, appropriate for age. Pain: Complains of pain in upper lip. Neuro: Level of Consciousness is awake, alert, obeys commands, Oriented to person, place, time, situation, Appropriate for age. Cardiovascular: Capillary refill < 3 seconds. Respiratory: Airway is patent Trachea midline Respiratory effort is even, unlabored, Respiratory pattern is regular, symmetrical. GI: No signs and/or symptoms were reported involving the gastrointestinal system. : No signs and/or symptoms were reported regarding the genitourinary system. EENT: No signs and/or symptoms were reported regarding the EENT system. Derm: No signs and/or symptoms reported regarding the dermatologic system. Skin is intact, is healthy with good turgor, Skin is pink, warm \\T\\ dry. Musculoskeletal: No signs and/or symptoms reported regarding the musculoskeletal system. Circulation, motion, and sensation intact. Capillary refill < 3 seconds, Range of motion: intact in all extremities. Injury Description: Laceration is clean, 2.6 to 7.5 cm long, not bleeding. 10:20 Reassessment: Patient appears in no apparent distress at this time. No changes from iw previously documented assessment. Patient and/or family updated on plan of care and expected duration. Pain level reassessed. Patient is alert, oriented x 3, equal unlabored respirations, skin warm/dry/pink. 11:20 Reassessment: Patient appears in no apparent distress at this time. No changes from kc6 previously documented assessment. Patient and/or family updated on plan of care and expected duration. Pain level reassessed. Patient is alert, oriented x 3, equal unlabored respirations, skin warm/dry/pink. 12:20 Reassessment: Patient appears in no apparent distress at this time. No changes from kc6 previously documented assessment. Patient and/or family updated on plan of care and expected duration. Pain level reassessed. Patient is alert, oriented x 3, equal unlabored respirations, skin warm/dry/pink. 13:20 Reassessment: Patient appears in no apparent distress at this time. No changes from kc6 previously documented assessment. Patient and/or family updated on plan of care and expected duration. Pain level reassessed. Patient is alert, oriented x 3, equal unlabored respirations, skin warm/dry/pink. Vital Signs: 09:26 BP 109 / 76; Pulse 88; Resp 16; Temp 97.8; Pulse Ox 99% on R/A; iw 10:21 BP 100 / 71 LA Supine (auto/reg); Pulse 87; iw 10:21 BP 102 / 69 LA Sitting (auto/reg); Pulse 89; iw 10:21 BP 107 / 76 LA Standing (auto/reg); Pulse 99; iw 13:20 BP 102 / 61; Pulse 68; Resp 17 S; Pulse Ox 100% on R/A; kc6 ED Course: 09:07 Patient arrived in ED. rg4 09:08 Ad Santos MD is Private Physician. rg4 09:10 Art[facility] sb4 09:10 Reyes Sal DO is Attending Physician. sb4 09:20 Laura Duarte, MIKAYLA is Primary Nurse. iw 09:23 Patient maintains SpO2 saturation greater than 95% on room air. iw 09:23 Patient has correct armband on for positive identification. Bed in low position. Call iw light in reach. Side rails up X 1. Adult w/ patient. Client placed on continuous cardiac and pulse oximetry monitoring. NIBP monitoring applied. 09:24 Triage completed. iw 09:36 CT Head Brain wo Cont In Process Unspecified. EDMS 09:46 Chest Single View XRAY In Process Unspecified. EDMS 09:58 Inserted saline lock: 20 gauge in right antecubital area, using aseptic technique. kc6 Blood collected. 12:50 Sherice Godwin MD is Referral Physician. sb4 12:51 Referral Physician role handed off by Sherice Godwin MD sb4 12:51 Sherice Godwin MD is Referral Physician. sb4 Administered Medications: 10:20 Drug: NS 0.9% IV 1000 ml IV at 1 bolus Per protocol; 1000 mL bolus Route: IV; Rate: 1 iw bolus; Site: right antecubital; 13:21 Follow up: Response: No adverse reaction; IV Status: Completed infusion; IV Intake: kc6 1000ml 12:26 Drug: Ativan IVP 0.5 mg IVP once Route: IVP; Site: right antecubital; iw 13:21 Follow up: Response: No adverse reaction; Anxiety decreased; RASS: Alert and Calm (0) kc6 13:03 Drug: ceFAZolin IVPB 1 grams IVPB once Route: IVPB; Site: right antecubital; kc6 Intake: 13:21 IV: 1000ml; Total: 1000ml. kc6 Outcome: 12:51 Discharge ordered by . sage 13:44 Patient left the ED. kb3 Signatures: Dispatcher [employer] EDLaura Lindsey RN RN iw Garcia, Rubi rg4 Rody Weber RN RN kc6 Melodie Lane RN RN kb3 Arti Salgado, PA-C PA-C [email or web address]
[2023-10-19 14:07] VITALS: BP 102/61; TEMP 97.8; O2SAT 100
--- NOTE | 2023-10-20 01:52 | OP ---
Date of Procedure: 10/19/2023 Surgeon: Sherice Godwin MD Preoperative Diagnosis: Left upper lip complex [id number] laceration involving the vermilio n border of length 3 cm. Postoperative Diagnosis: Left upper lip complex [id number] laceration involving the vermili on border of length 3 cm. Procedure: Complex repair of upper lip, 3 cm. Indication For Procedure: The patient presented to the emergency room following a fall in her home, during which time, she sustained a laceration of the lip. She presented to the emergency room and wa s evaluated by the emergency room. Due to the complexity of the laceration, an ENT consultation for repair was requested. Description Of Procedure: The patient was placed in supine position. She was administered angiolyti c medication via IV by the emergency room staff. The left infraorbital nerve was anesthetized using 2% lidocaine with epinephrine in a block like fashion. After time for effect, the area surrounding t he laceration including the area just under the left nostril as well as the tissue adjacent to the la ceration was injected with lidocaine to aid in hemostasis and pain control. After adequate time for effect, the laceration was examined. The laceration extended full-thickness through the skin of the upper lip approximately 3 mm below the opening of the nostril, it extended through the vermilion bord er into the muscular layer and onto the mucosal surface of the lip. The total laceration was approxi mately 3 cm. The wound was thoroughly cleaned and the area prepped with Betadine. 4-0 Vicryl suture was used to approximate the deep muscular layer at the vermilion border to allow for proper alignmen t. The cutaneous lip was then reapproximated with deep Vicryl suture and additional suture in the mu scular layer within the lower portion along the free margin of the lip was performed. After approxim ation with the deep sutures, the cutaneous portion of the lip was closed using 5-0 fast-absorbing gut in an interrupted fashion. A 5-0 chromic suture was then used starting from the mucosal inner porti on of the lip and proceeding around through the wet-dry border and onto the dry portion of the vermil ion lip. The overall closure was felt to be very good with good approximation and no active bleeding . The area was cleaned and dried. Disposition: The patient to be discharged home later today at the discretion of the emergency room. She is verbally instructed in regard to wound care including cleaning of the wound with gentle soap and water. If there is significant crusting or scabbing, it can be removed gently with peroxide and Q-Tip. The patient is instructed to apply Aquaphor at least twice daily to the wound edges in order to aid in healing. Pain control via OTC Tylenol or ibuprofen. If additional pain medications are re quired, the patient may contact Dr. Godwin's office directly. The patient is instructed to follow u p with Dr. Godwin's office in 1 to 2 weeks for wound evaluation. Complications: None. Estimated Blood Loss: Minimal. Specimens: None. PRICILA/MODDarlin Voice ID: [id number] Report ID: [id number]
== END ==
LOC: ER 09:06
PROC: 0HQ1XZZ Repair Face Skin, External Approach (ICD-10-PCS; principal; 2023-10-19)
DX: S01.511A Laceration without foreign body of lip, initial encounter (principal); R55 Syncope and collapse; W18.30XA Fall on same level, unspecified, initial encounter
CPT/HCPCS: 96361; 93005; 85025; 80048; 36415; 83735; 85610; 80076; 85730; 84484; 70450; 71045; 96375; 96374; 99284; 13152; J7030; J0690

== ENCOUNTER 2024-09-29 13:06 | Emergency (ER) | payer BC ==
[2024-09-29] MEDS ORDERED: NA CHLORIDE 0.9% 1,000 ML ONE (14:11)
[2024-09-29] MEDS ORDERED: ONDANSETRON 4 MG/2 ML VIAL ONE (14:11)
[2024-09-29 14:33] LABS: Specific Gravity 1.008 (1.005-1.030); Urine Bilirubin NEGATIVE (Negative); Urine Blood Negative (Negative); Urine Clarity Clear (Clear); Urine Color Colorless (Yellow); Urine Glucose NEGATIVE (Negative); Urine Ketones NEGATIVE (Negative); Urine Microscopic Reflex YN NO UMIC; Urine Nitrite NEGATIVE (Negative); Urine Protein NEGATIVE (Negative); Urine Urobilinogen Normal (Normal)
[2024-09-29 14:35] LABS: Specific Gravity 1.008 (1.005-1.030)
[2024-09-29 14:59] LABS: Absolute Eosinophils 0.1 K/uL (0-0.5); Absolute Lymphocytes (CBC) 1.3 K/uL (0.7-4.9); Absolute Monocytes 0.6 K/uL (0.1-1.3); Absolute Neutrophil 3.6 K/uL (1.8-8.0); Basophils % 0.4 % (0-1.3); Eosinophils % 2.4 % (0-4.4); Hematocrit 40.1 % (36.0-45.0); Hemoglobin 13.2 g/dL (12.0-15.0); Lymphocytes % 22.6 % (15.3-44.8); MCH 30.3 pg (27.0-35.0); MCHC 32.9 g/dL (32.0-36.0); MCV 92.3 fL (80-100); MPV 9.3 fL (7.6-11.3); Monocytes % 10.4 % (3.3-12.3); Neutrophils % 64.2 % (41.7-73.7); Platelets 225 thou/uL (152-406); RBC Red Blood Cell Count 4.35 M/uL (3.86-4.86); Red Cell Distribution Width 13.1 % (12.1-15.2)
[2024-09-29 15:27] LABS: AST/SGOT 13 U/L (15-37); Albumin 3.2 g/dL (3.4-5.0); Albumin/Globulin Ratio 0.9 (1.1-1.8); Alkaline Phosphatase 62 U/L (45-117); Anion Gap 7.1 mEq/L (5.0-15.0); BUN Blood Urea Nitrogen 16 mg/dL (7-18); Bicarbonate 28 mEq/L (21-32); Bilirubin Total 0.4 mg/dL (0.2-1.0); Globulin 3.5 g/dL (2.3-3.5); Glomerular Filtration Rate 101 ml/min (=/>90); Glucose Level 90 mg/dL (74-106); Lipase 30 U/L (13-75); Potassium 4.1 mEq/L (3.5-5.1); Protein, Total 6.7 g/dL (6.4-8.2); Sodium Level 135 mEq/L (136-145)
[2024-09-29 15:38] LABS: ALT/SGPT < 14 U/L (13-56)
--- NOTE | 2024-09-29 16:53 | RAD REPORT ---
EXAMINATION: CT ABDOMEN AND PELVIS WITH CONTRAST CLINICAL INDICATION: Abdominal pain TECHNIQUE: CT abdomen and pelvis was performed, after the administration of 100 cc Isovue-300.. Sagit david and coronal reconstructions were obtained. One or more of the following dose reduction techniques were used: Automated exposure control, adjustment of the mA and kV according to patient si ze, and iterative reconstruction. Unless otherwise specified, incidental findings do not require dedicated imaging follow-up. [id number]. Oral contrast was not given which limits evaluation of bowel and appendix. COMPARISON: .None FINDINGS: Several tiny low-density lesions probably are benign. Spleen, pancreas, adrenals and kidneys appear unremarkable No evidence of diverticulitis. 2.7 cm lipoma musculature left lateral abdominal wall Hysterectomy. No adnexal mass Mild thickening wall distal stomach : IMPRESSION: Mild apparent thickening wall of the distal stomach may be secondary to incomplete distention or mild inflammation
--- NOTE | 2024-09-29 16:58 | ER ---
Nurse's Notes [facility] Name: Monisha Malik Age: 54 yrs Sex: Female : 1970 Arrival Date: 09/29/2024 Time: 13:06 Bed 16 Private MD: Diagnosis: Noninfective gastroenteritis and colitis, unspecified Presentation: 09/29 13:23 Chief complaint: Patient states: THURSDAY STARTED WITH ABD PAIN AND VOMITING. COMPLAINS db OF FREQUENT URINATION X 3 WEEKS. Coronavirus screen: Client denies travel out of the [place] in the last 14 days. At this time, the client does not indicate any symptoms associated with coronavirus-19. Ebola Screen: Patient negative for fever greater than or equal to 101.5 degrees Fahrenheit, and additional compatible Ebola Virus Disease symptoms Patient denies exposure to infectious person. Patient denies travel to an Ebola-affected area in the 21 days before illness onset. No symptoms or risks identified at this time. Initial Sepsis Screen: Does the patient meet any 2 criteria? No. Patient's initial sepsis screen is negative. Does the patient have a suspected source of infection? No. Patient's initial sepsis screen is negative. Risk Assessment: Do you want to hurt yourself or someone else? Patient reports no desire to harm self or others. Onset of symptoms was September 27, 2024. 13:23 Method Of Arrival: Ambulatory db 13:23 Acuity: LEE 3 db Triage Assessment: 13:25 General: Appears in no apparent distress. comfortable, Behavior is calm, cooperative. db Pain: Complains of pain in abdomen. Neuro: Level of Consciousness is awake, alert, obeys commands, Oriented to person, place, time, situation, Reports dizziness. Respiratory: Airway is patent Respiratory effort is even, unlabored, Respiratory pattern is regular, symmetrical. GI: Abdomen is flat, non-distended. Historical: - Allergies: 13:25 No Known Allergies; db - PMHx: 13:26 PCOS; db - PSHx: 13:25 section; hysterectomy; Myomectomy; db - Immunization history:: Adult Immunizations unknown. - Infectious Disease History:: Denies. - Social history:: Smoking status: Patient denies any tobacco usage or history of. Screenin:34 [facility] ED Fall Risk Assessment (Adult) History of falling in the last 3 months, ko1 including since admission No falls in past 3 months (0 pts) Confusion or Disorientation No (0 pts) Intoxicated or Sedated No (0 pts) Impaired Gait No (0 pts) Mobility Assist Device Used No (0 pt) Altered Elimination No (0 pt) Score/Fall Risk Level 0 - 2 = Low Risk Oriented to surroundings, Maintained a safe environment, Educated pt \T\ family on fall prevention, incl call for assistance when getting out of bed, Assessed \T\ reinforced patient's understanding of fall precautions, Hourly rounding (assess needs \T\ fall precautionary measures) done. Abuse screen: Denies threats or abuse. Denies injuries from another. Nutritional screening: No deficits noted. Tuberculosis screening: No symptoms or risk factors identified. Assessment: 14:50 General: Appears in no apparent distress. Behavior is calm, cooperative, appropriate ko1 for age. Pain: Complains of pain in abdomen. Neuro: No deficits noted. Cardiovascular: No deficits noted. Respiratory: No deficits noted. GI: Bowel sounds present X 4 quads. Abd is soft X 4 quads. : No deficits noted. EENT: No deficits noted. Derm: No deficits noted. Musculoskeletal: No deficits noted. 17:16 Reassessment: Patient appears in no apparent distress at this time. Patient and/or db family updated on plan of care and expected duration. Pain level reassessed. Patient is alert, oriented x 3, equal unlabored respirations, skin warm/dry/pink. Patient states feeling better. Patient states symptoms have improved. Vital Signs: 13:23 BP 113 / 78; Pulse 56; Resp 16; Temp 98.1; Pulse Ox 100% ; db 15:34 BP 119 / 76; Pulse 62; Resp 15; Pulse Ox 99% ; ko1 17:00 BP 114 / 78; Pulse 54; Resp 16; Pulse Ox 100% on R/A; db 17:14 BP 118 / 74; Pulse 68; Resp 15; Pulse Ox 99% ; ko1 ED Course: 13:10 Patient arrived in ED. ra3 13:15 O[facility]iva [facility]C [facility]5 13:15 Carmelo Foster MD is Attending Physician. dr5 13:25 Triage completed. db 13:26 Arm band placed on Patient placed in an exam room. db 14:20 Test, Urine Sent. ko1 14:20 Urinalysis w/ reflexes Sent. ko1 14:20 Urine collected: clean catch specimen, clear, EKG done, by ED staff, reviewed by Otilio OSBORNE-Feroz. 14:27 Celeste Thibodeaux, RN is Primary Nurse. ko1 14:45 Warm blanket given. ko1 14:50 Initial lab(s) drawn, by wi, sent to lab. Inserted saline lock: 20 gauge in right ko1 antecubital area, using aseptic technique. Blood collected. Flushed with 10 mL NS. 14:51 Troponin High Sensitivity Sent. ko1 14:51 CBC with Diff Sent. ko1 14:51 CMP Sent. ko1 14:51 Lipase Sent. ko1 15:34 Patient has correct armband on for positive identification. Bed in low position. Call ko1 light in reach. Side rails up X 1. Provided Education on: labs. Pulse ox on. NIBP on. Door closed. Noise minimized. Lights dimmed. Warm blanket given. Pillow given. 15:34 No provider procedures requiring assistance completed. ko1 15:36 Patient requests rest room assistance. ko1 15:36 Assisted to bathroom. ko1 16:[address] via wheelchair. ko1 16:20 CT Abd/Pelvis - IV Contrast Only In Process Unspecified. EDMS 17:14 IV discontinued, intact, bleeding controlled, No redness/swelling at site. Pressure ko1 dressing applied. Administered Medications: 14:51 Drug: Ondansetron IVP 4 mg IVP once; over 2 minutes Route: IVP; Site: right antecubital;ko1 15:06 Follow up: Response: No adverse reaction ko1 14:51 Drug: NS 0.9% IV 1000 ml IV at 1 bolus Per protocol; to be given as a bolus over 60 ko1 minutes Route: IV; Rate: 1 bolus; Site: right antecubital; 15:33 Follow up: Response: No adverse reaction; IV Status: Completed infusion; IV Intake: ko1 1000ml Medication: 15:34 VIS not applicable for this client. ko1 Intake: 15:33 IV: 1000ml; Total: 1000ml. ko1 Outcome: 16:57 Discharge ordered by . dr5 17:14 Discharged to home ambulatory, ko1 17:14 Condition: stable 17:16 Discharged to home ambulatory, db 17:16 Condition: stable 17:16 Discharge instructions given to patient, Instructed on discharge instructions, follow up and referral plans. Prescriptions given X 1, 17:17 Patient left the ED. db Signatures: Dispatcher [employer] EDCeleste Jessica, RN RN ko1 Sunitha Akers RN RN db Matilde Sterling ra3 Otilio Leiva, EVS MANAGER-C EVS MANAGER-Cdr5 Corrections: (The following items were deleted from the chart) 13:25 PMHx: None; db db 13:25 Social history: Smoking status: Patient denies any tobacco usage or history of. dbdb 13: 13:23 Chief complaint: Patient states: THURSDAY STARTED WITH ABD PAIN AND VOMITING. db db
--- NOTE | 2024-09-29 16:58 | EDPHYS ---
Physician Documentation [facility] Name: Monisha Malik Age: 54 yrs Sex: Female : 1970 Arrival Date: 09/29/2024 Time: 13:06 Bed 16 Private MD: ED Physician Carmelo Foster HPI: 09/29 13:36 This 54 yrs old Female presents to ER via Ambulatory with complaints of dr5 Abdominal Pain. 13:36 The patient presents with abdominal pain in the epigastric area, in the right upper dr5 quadrant, in the left upper quadrant. Onset: The symptoms/episode began/occurred 2 day(s) ago. Patient is a 54-year-old female with history of PCOS coming in with 2 days of upper right and upper left abdominal pain. Patient reports she vomited 5 times on Thursday, no vomiting yesterday. Patient reports her abdominal pain feels the best today. Patient reports that she went to urgent care and they referred her here for CT scan. Patient denies fever, diarrhea. Patient reports that she is passing gas.. Historical: - Allergies: 13:25 No Known Allergies; db - PMHx: 13:26 PCOS; db - PSHx: 13:25 section; hysterectomy; Myomectomy; db - Immunization history:: Adult Immunizations unknown. - Infectious Disease History:: Denies. - Social history:: Smoking status: Patient denies any tobacco usage or history of. ROS: 13:36 Constitutional: as per hpi dr5 Exam: 17:00 Constitutional: This is a well developed, well nourished patient who is awake, alert, dr5 and in no acute distress. Head/Face: Normocephalic, atraumatic. Eyes: Pupils equal round and reactive to light, extra-ocular motions intact. Lids and lashes normal. Conjunctiva and sclera are non-icteric and not injected. Cornea within normal limits. Periorbital areas with no swelling, redness, or edema. ENT: Nares patent. No nasal discharge, no septal abnormalities noted. Tympanic membranes are normal and external auditory canals are clear. Oropharynx with no redness, swelling, or masses, exudates, or evidence of obstruction, uvula midline. Mucous membranes moist. Cardiovascular: Regular rate and rhythm with a normal S1 and S2. Normal PMI, no JVD. No pulse deficits. Respiratory: Lungs have equal breath sounds bilaterally, clear to auscultation. No rales, rhonchi or wheezes noted. No increased work of breathing, no retractions or nasal flaring. Abdomen/GI: Soft, non-tender, non-distended Vital Signs: 13:23 BP 113 / 78; Pulse 56; Resp 16; Temp 98.1; Pulse Ox 100% ; db 15:34 BP 119 / 76; Pulse 62; Resp 15; Pulse Ox 99% ; ko1 17:00 BP 114 / 78; Pulse 54; Resp 16; Pulse Ox 100% on R/A; db 17:14 BP 118 / 74; Pulse 68; Resp 15; Pulse Ox 99% ; ko1 MDM: 13:17 Medical Screening Exam initiated dr5 15:43 ED course: Spoke with patient about the lab results have come back so far. Patient is dr5 feeling much better after IV fluids. Pending CT abdomen pelvis at this time.. 16:59 Differential diagnosis: Appendicitis, diverticulitis, gastroenteritis. Data reviewed: dr5 vital signs, nurses notes, lab test result(s), radiologic studies, CT scan. Care significantly affected by the following chronic conditions: PCOS. Care significantly affected by the following Social Determinants of Health: Poor access to healthcare and/or lack of insurance, Poor access to transportation, Problems related to employment. Counseling: I had a detailed discussion with the patient and/or guardian regarding the historical points, exam findings, and any diagnostic results supporting the discharge/admit diagnosis, the presence of at least one elevated blood pressure reading (>120/80) during this emergency department visit, lab results, radiology results, the need for outpatient follow up, for definitive care, a family practitioner, to return to the emergency department if symptoms worsen or persist or if there are any questions or concerns that arise at home. Medication response: Normal saline. Response to treatment: the patient's symptoms have markedly improved after treatment. ED course: Patient reports she is feeling much better. Will send patient home with Marifer to help with nausea. Patient reports her abdominal pain has resolved. Printed out blood work and CT scan and discussed all results with her. All questions answered. Patient will follow-up with primary care doctor as needed and return to ER as needed. 09/29 13:27 Order name: CBC with Diff; Complete Time: 15:22 dr5 09/29 13:27 Order name: CMP; Complete Time: 15:40 dr5 09/29 13:27 Order name: Lipase; Complete Time: 15:40 dr5 09/29 13:27 Order name: Test, Urine; Complete Time: 14:38 dr5 09/29 13:27 Order name: Urinalysis w/ reflexes; Complete Time: 14:38 dr5 09/29 13:37 Order name: Troponin High Sensitivity; Complete Time: 15:40 dr5 09/29 13:28 Order name: CT Abd/Pelvis - IV Contrast Only; Complete Time: 16:54 dr5 09/29 13:37 Order name: EKG; Complete Time: 13:37 09/29 13:27 Order name: IV Saline Lock; Complete Time: 14:51 dr5 09/29 13:27 Order name: Labs collected and sent; Complete Time: 14:51 dr5 09/29 13:37 Order name: EKG - Nurse/Tech; Complete Time: 14:51 dr5 EC:22 Rate is 55 beats/min. Rhythm is regular. QRS Lancing is Normal. AL interval is normal at dr5 160 msec. QRS interval is normal at 80 msec. QT interval is normal at 412 msec. Administered Medications: 14:51 Drug: Ondansetron IVP 4 mg IVP once; over 2 minutes Route: IVP; Site: right antecubital;ko1 15:06 Follow up: Response: No adverse reaction ko1 14:51 Drug: NS 0.9% IV 1000 ml IV at 1 bolus Per protocol; to be given as a bolus over 60 ko1 minutes Route: IV; Rate: 1 bolus; Site: right antecubital; 15:33 Follow up: Response: No adverse reaction; IV Status: Completed infusion; IV Intake: ko1 1000ml Disposition Summary: 09/29/24 16:57 Discharge Ordered Notes: Location: Home dr5 Condition: Stable dr5 Diagnosis - Noninfective gastroenteritis and colitis, unspecified dr5 Followup: dr5 - With: Emergency Department - When: As needed - Reason: Worsening of condition Followup: dr5 - With: Private Physician - When: 1 - 2 days - Reason: Recheck today's complaints, Continuance of care, Re-evaluation by your physician Discharge Instructions: - Discharge Summary Sheet dr5 - Viral Gastroenteritis, Adult dr5 Forms: - Medication Reconciliation Form dr5 - Patient Portal Instructions dr5 - Leadership Thank You Letter dr5 Prescriptions: - Zofran 4 mg Oral Tablet - take 1 tablet ORAL route every 12 hours As needed; 20 tablet; Refills: 0, dr5 Product Selection Permitted Signatures: Dispatcher [employer] Celeste Miller RN RN ko1 Sunitha Akers RN RN db Otilio Leiva, DYLON-C INSURANCE OFFICE SUPERVISOR-Cdr5 Corrections: (The following items were deleted from the chart) 13:25 PMHx: None; sheela coker 13:25 Social history: Smoking status: Patient denies any tobacco usage or history of. dbdb
[2024-09-29 17:30] VITALS: TEMP 98.1
[2024-09-29 17:42] VITALS: BP 118/74; O2SAT 99
--- NOTE | 2024-09-30 15:41 | EKG ---
Test Date: 2024-09-29 Test Time: 14:22:19 Insurance Agents Supervisor: FELIPA MEASUREMENT RESULTS: Intervals: Rate: 55 WV: 160 QRSD: 80 QT: 412 QTc: 394 Reserve: P: 58 WV: 160 QRS: 65 T: 63 INTERPRETIVE STATEMENTS: Sinus bradycardia Septal infarct, age undetermined Abnormal ECG Compared to ECG 10/19/2023 09:44:41 Myocardial infarct finding now present Sinus rhythm no longer present Electronically Signed On 09-30-24 15:40:01 TECHNICAL TRAINING SPECIALIST by Slade Rendon
== END 2024-09-29 17:17 | disposition home or self-care (01) ==
LOC: ER 13:06
DX: K52.9 Noninfective gastroenteritis and colitis, unspecified (principal)
CPT/HCPCS: 96361; 93005; 85025; 36415; 81025; 81003; 84484; 83690; 80053; 74177; 96374; 99285; Q9967; J2405; J7030